=== PATIENT | female | born 1985 | race Caucasian/White ===

== ENCOUNTER 2020-05-10 07:04 | Inpatient (IN) | payer SELFPAY ==
[~2020-05-10] VITALS: Ht 154.9 cm; Wt 73.5 kg
[2020-05-10] VITALS (45 sets, daily range): BP systolic 87–168; BP diastolic 51–84
[~2020-05-10 07:04] MED LIST: ACDPT; IBP800T PO; LORA0.5T PO; NAPR-1070 PO; NF-SKEL800 PO; PARO30TA74 PO; PROM12.59 PO; SULF1TAB35 PO
--- NOTE | 2020-05-10 07:15 | NUR ---
GOPI SUMMERS presented to unit via AMBULATORY from ED, accompanied by S/O, with c/o WATER BROKE,CONTRACTIONS. GOPI SUMMERS weighed, gowned, voided, and to bed. EFHM and TOCO applied, VS taken. GOPI SUMMERS oriented to bed controls, call light, TV, heat, and A/C controls.
[2020-05-10] MEDS ORDERED: D5 LR IV SOLUTION 1,000 ML IV ONE (07:33)
--- NOTE | 2020-05-10 07:38 | NUR ---
DR. SOLIS NOTIFIED OF PT'S ARRIVAL, @ 36.1, SROM, DREWE. THIS RN TO SEE IF DR. GUILLERMO IS AVAILABLE FOR HER OWN LABOR.
--- NOTE | 2020-05-10 07:44 | NUR ---
DR. GUILLERMO NOTIFIED OF PT'S ARRIVAL, @ 36.1, SROM SINCE 0500, SVE, CURRENTLY UNKNOWN GBS, CLINIC IS SENDING OVER UPDATED RECORDS. DR. GUILLERMO TO TAKE OVER, NEW ORDERS RECEIVED.
[2020-05-10] MEDS ORDERED: OXYTOCIN PRE-MIX DRIP 500 ML IV SCH ×2 (07:56→17:56)
[2020-05-10] MEDS ORDERED: MINERAL OIL CONCENTRATE 99.9% 15 ML UDC TOP PRN (08:00)
--- NOTE | 2020-05-10 08:00 | NUR ---
this rn receives report from doug guzman rn and shiraz serna rn at this time. this rn assumes care for pt at this time.
[2020-05-10 08:02] LABS: BASOPHILS % (AUTO) 0 % (0-10); EOSINOPHILS # (AUTO) 0.1 10^3/uL (0.0-0.3); EOSINOPHILS % (AUTO) 1 % (0-10); HEMATOCRIT 36 % (35-52); HEMOGLOBIN 12.4 G/DL (11.5-16.0); LYMPHOCYTES # (AUTO) 1.8 X 10^3 (1.0-4.0); LYMPHOCYTES % (AUTO) 19 % (12-44); MEAN CORPUSCULAR HEMOGLOBIN 31 PG (25-34); MEAN CORPUSCULAR HGB CONC 35 G/DL (32-36); MEAN CORPUSCULAR VOLUME 91 FL (80-99); MEAN PLATELET VOLUME 10.2 FL (7.4-10.4); MONOCYTES # (AUTO) 0.8 X 10^3 (0.0-1.0); MONOCYTES % (AUTO) 9 % (0-12); NEUTROPHILS # (AUTO) 6.5 X 10^3 (1.8-7.8); NEUTROPHILS % (AUTO) 71 % (42-75); PLATELET COUNT 245 10^3/uL (130-400); RED CELL DISTRIBUTION WIDTH 14.1 % (10.0-14.5); WHITE BLOOD COUNT 9.2 10^3/uL (4.3-11.0)
[2020-05-10] MEDS ORDERED: OXYTOCIN PRE-MIX DRIP 500 ML IV ONE (08:05)
[2020-05-10] MEDS: D5 LR IV SOLUTION 1,000 ML IV SCH ×2 (08:26→15:47)
--- NOTE | 2020-05-10 09:00 | NUR ---
This RN contacts Dr Cat. GBS status unknown. Lab was sent on and office does not have results back yet. would like to start AMP abx for unknown gbs status during labor. start gbs protocol.
[2020-05-10] MEDS ORDERED: AMPICILLIN FOR IV USE 2,000 MG in WATER (STERILE) FOR INJECTION 14.8 ML IV SCH (09:07)
--- OUTSIDE RECORDS SUMMARY | 2020-05-10 09:52 | XMS REPORT ---
Author Author [employer] [facility] [employer] [facility] Address [address] [place] [address] Care Team Providers Care Boring Inspector Name Role Phone GEORGE MCCLAIN Unavailable [facility] Unavailable WILL HICKMAN, EDITH Adan Unavailable Unavailable ZAMZAM LOPEZ APRN Unavailable Unavailable Unavailable Unavailable Unavailable Unavailable Unavailable Unavailable Allergies The data below is from unstructured sources Allergen Type Severity Reaction Status Last Updated NKANo Known Allergies Allergy Unknown Active 03/26/07 Allergen Type Severity Reaction Last Updated No Known Allergies Allergy Unknown 03/26/07 Allergen Type Severity Reaction Last Updated No Known Allergies Allergy Unknown 03/26/07 Encounters Encounter Date Encounter Type Encounter Diagnosis Care Provider Facility Start: Patient encounter EDITH SOLIS MD [facility] 05-10-2020 [facility] Start: Patient encounter 04-19-2015 procedure Start: Patient encounter ZAMZAM LOPEZ APRN [facility] 04-19-2015 [facility] Start: Patient encounter 04-18-2013 procedure Start: Patient encounter JANETTE BAKER MD Not A vailable ([id number]) 04-14-2013 procedure Medical Equipment No Information Goals No Information Immunizations Immunizatio Immunization Notes Care Provider Facility n Date 02-17-2018 [facility] ([facility] ([id number]) Interventions No Information Medications No Information Payers The data below is from unstructured sources Payer Name Policy Number Subscriber Name Relationship Self Pay RobbiDior Ventura 01 Self / Same As Patient Plan of Treatment The data below is from unstructured sources Discharge Date 07/06/16 8:25pm Disposition 01 HOME, SELF-CARE Condition at Discharge Stable Instructions/Education Provided [id number] Concussion (ED) Cervical Sprain (ED) Prescriptions See Medication Section Referrals GEOREG MCCLAIN DO - Primary Care Physician [facility] - Primary Care Physician Problems Problem Problem Date Last Documented Episodic/Chr Provider Classificati Recorded Date onic on Malaise and Other malaise and fatigue Episodic KR ISTINA fatigue OLIVIA HICKMAN (2 sources) Nonmalignant Lump or mass in breast 05-10-2020 Episodic HE IDI JESSICA breast BRICK YARD HAND conditions (3 sources) Other Vega's palsy Episodic nervous system disorders (4 sources) Other Disturbance of skin sensation Episod ic nervous system disorders (2 sources) Paralysis Paralysis, unspecified Chronic KRIST BANDAR (2 sources) OLIVIA HICKMAN Procedures The data below is from unstructured sourcesNo known history of procedures. Results Test Name Value Interpreta Reference Facilit Date tion Range y Time laboratory on 2020-05-10 Basophils (Bld) 0.0 10*3/uL Negative 0.0-0.1 PENDING 05-10 [#/Vol] 10*3/uL [facility] 04:00-0 ([id number]) 400 Basophils/100 WBC 0 % Negative 0-10 % PENDING 05-10 (Bld) [facility] 04:00-0 (48754) 400 Eosinophils (Bld) 0.1 10*3/uL Negative 0.0-0.3 PENDING [#/Vol] 10*3/uL [facility] 04:00-0 (00050) 400 Eosinophils/100 WBC 1 % Negative 0-10 % PENDING (Bld) [facility] 04:00-0 ([id number]) 400 Erythrocyte 14.1 % Negative 10.0-14.5 PENDING distribution width % [facility] 0[facility] (RBC) [Ratio] [facility] 04:00-0 (47310) 400 Hematocrit (Bld) 36 % Negative 35-52 % PENDING [Volume fraction] [facility] 04:00-0 (83357) 400 Hemoglobin (Bld) 12.4 g/dL Negative 11.5-16.0 PENDING [Mass/Vol] g/dL [facility] 04:00-0 ([id number]) 400 Lymphocytes (Bld) 1.8 10*3/uL Negative 1.0-4.0 PENDING [#/Vol] 10*3 [facility] 020 [facility] 04:00-0 ([id number]) 400 Lymphocytes/100 WBC 19 % Negative 12-44 % PENDING (Bld) [facility] 020 [facility] 04:00-0 ([id number]) 400 MCH (RBC) [Entitic 31 pg Negative 25-34 pg PENDING 04-24 mass] [facility] 020 [facility] 04:00-0 ([id number]) 400 MCHC (RBC) 35 g/dL Negative 32-36 g/dL PENDING [Mass/Vol] [address] 04:00-0 (19009) 400 MCV (RBC) [Entitic 91 Negative 80-99 PENDING 04-24 vol] [foz_us] [facility] 020 [facility] 04:00-0 ([id number]) 400 Monocytes (Bld) 0.8 10*3/uL Negative 0.0-1.0 PENDING 05-10 [#/Vol] 10*3 [facility] [address] [place] [address] 04:00-0 (95524) 400 Monocytes/100 WBC 9 % Negative 0-12 % PENDING 05-10 (Bld) [address] 04:00-0 ([id number]) 400 Neutrophils (Bld) 6.5 10*3/uL Negative 1.8-7.8 PENDING [#/Vol] 10*[address] 04:00-0 (47687) 400 Neutrophils/100 WBC 71 % Negative 42-75 % PENDING (Bld) [address] 04:00-0 (49089) 400 Platelet mean volume 10.2 Negative 7.4-10.4 PENDING (Bld) [Entitic vol] [foz_us] [facility] 04:00-0 (51516) 400 Platelets (Bld) 245 10*3/uL Negative 130-400 PENDING 05-10 [#/Vol] 10*3/uL [facility] 04:00-0 (28303) 400 RBC (Bld) [#/Vol] 3.95 10*6/uL Low 4.35-5.85 PENDING 10*6/uL [facility] 04:00-0 (44193) 400 WBC (Bld) [#/Vol] 9.2 10*3/uL Negative 4.3-11.0 PENDING 10*3/uL [facility] 04:00-0 (62576) 400 Social History The data below is from unstructured sources History Response Recorde d Date/Time Hx Family Cancer N 01/11 10:03am History Response Recorde d Date/Time Alcohol Use Denies Use 0 04/03/13 9:08pm Recreational Drug Use N 04/03/13 9:08pm Recent Infectious Disease Exposure N 04/03/13 9:08pm Hospitalization with Isolation Denies 04/03/13 9:08pm History Response Recorde d Date/Time Alcohol Use Denies Use 0 04/03/13 9:08pm Recreational Drug Use N 04/03/13 9:08pm Recent Infectious Disease Exposure N 04/03/13 9:08pm Hospitalization with Isolation Denies 04/03/13 9:08pm Vital Signs The data below is from unstructured sources Vital Response Date/Time Temperature (Fahrenheit) 98.1 degree s F (97.6 - 99.5) 07/06/2016 6:10pm Temperature (Calculated Celsius) 36. 61915 degrees C (36.4 - 37.5) 07/06/2016 6:10pm Temperature Source Temporal 07/06/2016 6:10pm Pulse Rate (adult) 68 bpm (60 - 90) 07/06/2016 6:10pm Respiratory Rate 16 bpm (12 - 24) 07/06/2016 6:10pm O2 Sat by Pulse Oximetry 98 % (88 - 100) 07/06/2016 6:10pm Blood Pressure 108/75 mm Hg 07/06/2016 6:10pm Blood Pressure Mean 86 mm Hg 07/06/2016 6:10pm Pain Numeric Pain Scale 9 6:42pm Height (Feet) 5 feet 09/2016 6:10pm Height (Inches) 5 inches 07/06/2016 6:10pm Height (Calculated Centimeters) 165. 000319 cm 07/06/2016 6:10pm Weight (Pounds) 130 pounds 07/06/2016 6:10pm Weight (Calculated Grams) 62857.454 gm 07/06/2016 6:10pm Weight (Calculated Kilograms) 58.967 009 kilograms 07/06/2016 6:10pm Calculated BMI 22.68 09/2016 6:10pm Capillary Refill Capillary Refill Less Than 3 Seconds 07/06/2016 6:10pm Functional Status The data below is from unstructured sourcesNo functional status results. Mental Status No Information Advance Directives Directive Response Recor ded Date/Time Advance Directives No 6:10pm Health Care Power of Pulmonary Function Technologist No 07/06/16 6:10pm Organ Donor Yes 07/06/16 6:10pm Resuscitation Status Full Code 07/06/16 6:10pm Directive Response Recor ded Date Advance Directives N 08/06 9:08pm Health Care Power of Pulmonary Function Technologist N 04/03/13 9:08pm Organ Donor Y 04/03/13 9 :08pm Discharge Instructions No hospital discharge instructions. Additional Source Comments This clinical document has been generated using [employer] software that has been certified by the Office of the National Coordinator for Health Information Technology (ONC 15.99.04.3023.Diam.31.00.0.877546) and the National Committee for Cement Mixer Driver (NCQA, as an eMeasure certified technology). FOR RECORDS PERTAINING TO PATIENTS WHO ARE OR HAVE BEEN ENROLLED IN A CHEMICAL D EPENDENCY/SUBSTANCE ABUSE PROGRAM, SOME INFORMATION MAY BE OMITTED. This clinica l summary was aggregated from multiple sources. Caution should be exercised in using it in the provision of clinical care. This summary normalizes information from multiple sources, and as a consequence, information in this document may ma terially change the coding, format and clinical context of patient data. In daniel tion, data may be omitted in some cases. CLINICAL DECISIONS SHOULD BE BASED ON T HE PRIMARY CLINICAL RECORDS. [employer] provides no warranty or guara ntee of the accuracy or completeness of information in this document.The followi ng information is based on time limited clinical information
--- OUTSIDE RECORDS SUMMARY | 2020-05-10 09:53 | XMS REPORT ---
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 Active 04308119 ALLERGIES No Information ENCOUNTERS Encounter Location Date Diagnosis [place] [address] [address] 12 Apr, 2018 Encounter for Depo-Provera c ontraception Z30.42 [place] [address] [address] 12 Apr, 2018 Dysfunctional uterine bleedi ng N93.8 [place] [address] [place] [id number] [address] [place] [address] February, Dysfunctional uterine bleedi ng N93.8 [place] [address] [address] February, [facility] [address] [address] Jan, General counseling and advic e for contraceptive management Z30.09 and Encounter for Depo-Provera contraception Z30.42 [place] [address] [address] [place] [id number] [place] [address] Jan, Anxiety F41.9 [place] [address] [place] [id number] [address] [place] [address] Dec, 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 [place] [address] [address] [place] [id number] [address] [place] [address] Jun, Anxiety F41.9 [place] [address] [address] May, Anxiety F41.9 [facility] [address] [id number] [address] [place] [address] Apr, Anxiety F41.9 [facility] [address] [id number] [address] [place] [address] 17 Mar, 2015 Routine gynecological examin ation V72.31 ; Pap test, as part of routine gynecological examination V76.2 ; Breast cancer screening V76.10 ; Dysmenorrhea 625.3 ; Lump of right breast 611.72 and Family history of ovarian cancer V16.41 [facility] [address] [id number] [address] [place] [address] 14 Jan, 2015 [facility] [address] [id number] [address] [place] [phone] Jan, [facility] [address] [id number] [address] [place] [address] Sep, [facility] [address] [id number] [address] [place] [address] Sep, [facility] [address] [id number] [address] [place] [address] Dec, [facility] [address] [id number] [address] [place] [address] Dec, [facility] [address] [id number] [address] [place] [address] Apr, [facility] [address] [id number] [address] [place] [phone] Mar, [facility] [address] [id number] [address] [place] [address] Mar, [facility] [address] [id number] [address] [place] [address] Mar, [facility] [address] [id number] [address] [place] [phone] Mar, [facility] [address] [id number] [address] [place] [address], [place] [address] 08 Jan, 2013 [facility] [address] [id number] [address] [place] [address], [place] [address] Jan, [facility] [address] [id number] [address] [place] [address], [place] [address] 31 Dec, 2012 [facility] [address] [id number] [address] [place] [address], [place] [address] 29 Dec, 2012 [facility] [address] [id number] [address] [place] [address], [place] [address] 28 Dec, 2012 [facility] [address] [id number] [address] [place] [address], [place] [address] 22 Dec, 2012 [facility] [address] [id number] [address] [place] [address], [place] [address] 20 Dec, 2012 [facility] [address] [id number] [address] [place] [address], [place] [address] 20 Dec, 2012 [facility] [address] [id number] [address] [place] [address], [place] [address] 13 Oct, 2009 [facility] [address] [id number] [address] [place] [address], [place] [address] 31 Sep, 2009 [facility] [address] [id number] [address] [place] [address], [place] [address] 23 Sep, 2009 [facility] [address] [id number] [address] [place] [address], [place] [address] 07 Sep, 2009 [facility] [address] [id number] [address] [place] [address], [place] [address] 23 Aug, 2009 [facility] [address] [id number] [address] [place] [address], [place] [address] Aug, [facility] [address] [id number] [address] [place] [address], [place] [address] 11 Aug, 2009 [facility] [address] [id number] [address] [place] [address], [place] [address] Jul, [facility] [address] [facility] [id number] [address] [place] [phone] Jul, [facility] [address] [facility] [id number] [address] [place] [phone] Jul, [facility] [address] [facility] [id number] [address] [place] [address] Jun, [facility] [address] [facility] [id number] [address] [place] [address] May, [facility] [address] [facility] [id number] [address] [place] [address] Mar, IMMUNIZATIONS No Known Immunizations SOCIAL HISTORY Never Assessed REASON FOR VISIT EMR-[facility] PLAN OF CARE VITAL SIGNS MEDICATIONS Unknown Medications RESULTS No Results PROCEDURES No Known procedures INSTRUCTIONS MEDICATIONS ADMINISTERED No Known Medications MEDICAL (GENERAL) HISTORY Type Description Date Medical History low blood pressure Medical History hx of vega's palsy Medical History depression Surgical History breast implant Hospitalization History UTI. Then got Hypotension. 2013
--- OUTSIDE RECORDS SUMMARY | 2020-05-10 09:53 | XMS REPORT ---
Author Author Joanna Shaw Doctor Organization [facility] Address Unknown Phone Unavailable Care Team Providers Care Die Tester Name Role Phone Migration, Doctor Unavailable Unavailable PROBLEMS Type Condition ICD9-CM Code [id number] Code Onset Dates Condition S tatus SNOMED Code Problem Dysfunctional uterine bleeding N93.8 Active [id number] ALLERGIES No Information ENCOUNTERS Encounter Location Date Diagnosis [place] [address] [address] 12 Apr, 2018 Encounter for Depo-Provera c ontraception Z30.42 [place] [address] [address] 12 Apr, 2018 Dysfunctional uterine bleedi ng N93.8 [place] [id number] [address] [place] [address] February, Dysfunctional uterine bleedi ng N93.8 [place] [address] [address] February, [facility] [address] [address] Jan, General counseling and advic e for contraceptive management Z30.09 and Encounter for Depo-Provera contraception Z30.42 [place] [address] [place] [id number] [address] [place] [address] Jan, Anxiety F41.9 [place] [address] [place] [id number] [address] [place] [address] Dec, 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 [place] [address] [place] [id number] [address] [place] [address] Jun, Anxiety F41.9 [place] [address] [address] May, Anxiety F41.9 [facility] [address] [id number] [address] [place] [address] Apr, Anxiety F41.9 [facility] [address] [id number] [address] [place] [address] 17 Mar, 2015 Routine gynecological examin ation V72.31 ; Pap test, as part of routine gynecological examination V76.2 ; Breast cancer screening V76.10 ; Dysmenorrhea 625.3 ; Lump of right breast 611.72 and Family history of ovarian cancer V16.41 [facility] [address] [id number] [address] [place] [address] 14 Jan, 2015 [facility] [address] [id number] [address] [place] [phone] Jan, [facility] [address] [id number] [address] [place] [address] Sep, [facility] [address] [id number] [address] [place] [phone] Sep, [facility] [address] [id number] [address] [place] [phone] Dec, [facility] [address] [id number] [address] [place] [phone] Dec, [facility] [address] [id number] [address] [place] [phone] Apr, [facility] [address] [id number] [address] [place] [phone] Mar, [facility] [address] [id number] [address] [place] [phone] Mar, [facility] [address] [id number] [address] [place] [phone] Mar, [facility] [address] [id number] [address] [place] [address] Mar, [facility] [address] [id number] [address] [place] [address], [place] [address] 08 Jan, 2013 [facility] [address] [id number] [address] [place] [address], [place] [address] Jan, [facility] [address] [id number] [address] [place] [address], [place] [address] 31 Dec, 2012 [facility] [address] [id number] [address] [place] [address], [place] [address] 29 Dec, 2012 [facility] [address] [id number] [address] [place] [address], [place] [address] 28 Dec, 2012 [facility] [address] [id number] [address] [place] [address], [place] [address] 22 Dec, 2012 [facility] [address] [id number] [address] [place] [address], [place] [address] 20 Dec, 2012 [facility] [address] [id number] [address] [place] [address], [place] [address] 20 Dec, 2012 [facility] [address] [id number] [address] [place] [address], [place] [address] 13 Oct, 2009 [facility] [address] [id number] [address] [place] [address], [place] [address] 31 Sep, 2009 [facility] [address] [id number] [address] [place] [address], [place] [address] 23 Sep, 2009 [facility] [address] [id number] [address] [place] [address], [place] [address] 07 Sep, 2009 [facility] [address] [id number] [address] [place] [address], [place] [address] 23 Aug, 2009 [facility] [address] [id number] [address] [place] [address], [place] [address] Aug, [facility] [address] [id number] [address] [place] [address], [place] [address] 11 Aug, 2009 [facility] [address] [id number] [address] [place] [address], [place] [address] Jul, [facility] [address] [facility] [id number] [address] [place] [phone] Jul, [facility] [address] [facility] [id number] [address] [place] [phone] Jul, [facility] [address] [facility] [id number] [address] [place] [phone] Jun, [facility] [address] [facility] [id number] [address] [place] [phone] May, [facility] [address] [facility] [id number] [address] [place] [phone] Mar, IMMUNIZATIONS No Known Immunizations SOCIAL HISTORY Never Assessed REASON FOR VISIT [place] [place]ARE VITAL SIGNS MEDICATIONS Unknown Medications RESULTS No Results PROCEDURES No Known procedures INSTRUCTIONS MEDICATIONS ADMINISTERED No Known Medications MEDICAL (GENERAL) HISTORY Type Description Date Medical History low blood pressure Medical History hx of vega's palsy Medical History depression Surgical History breast implant Hospitalization History UTI. Then got Hypotension. 2013
--- OUTSIDE RECORDS SUMMARY | 2020-05-10 09:53 | XMS REPORT ---
Author Author Joanna Shaw Doctor Organization [facility] Address Unknown Phone Unavailable Care Team Providers Care Production Scheduler Name Role Phone Migration, Doctor Unavailable Unavailable PROBLEMS Type Condition ICD9-CM Code FLV72-QT Code Onset Dates Condition S tatus SNOMED Code Problem Dysfunctional uterine bleeding N93.8 Active [id number] ALLERGIES No Information ENCOUNTERS Encounter Location Date Diagnosis [place] [address] [address] 12 Apr, 2018 Encounter for Depo-Provera c ontraception Z30.42 [place] [address] [address] 12 Apr, 2018 Dysfunctional uterine bleedi ng N93.8 [place] [id number] [address] [place] [address] February, Dysfunctional uterine bleedi ng N93.8 [place] [address] [address] February, [facility] [place] [address] [address] 26 Jan, 2018 General counseling and advic e for contraceptive management Z30.09 and Encounter for Depo-Provera contraception Z30.42 [place] [address] [place] [id number] [address] [place] [address] Jan, Anxiety F41.9 [place] [address] [place] [id number] [address] [place] [address] Dec, 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 [place] [address] [place] [id number] [address] [place] [phone] Jun, Anxiety F41.9 [place] [address] [place] [id number] [address] [place] [address] May, Anxiety F41.9 [facility] [place] [address] [id number] [address] [place] [phone] Apr, Anxiety F41.9 [facility] [place] [address] [id number] [address] [place] [phone] 17 Mar, 2015 Routine gynecological examin ation V72.31 ; Pap test, as part of routine gynecological examination V76.2 ; Breast cancer screening V76.10 ; Dysmenorrhea 625.3 ; Lump of right breast 611.72 and Family history of ovarian cancer V16.41 [facility] [place] [address] [id number] [address] [place] [phone] 14 Jan, 2015 [facility] [place] [address] [id number] [address] [place] [phone] Jan, [facility] [place] [address] [id number] [address] [place] [phone] Sep, [facility] [place] [address] [id number] [address] [place] [phone] Sep, [facility] [place] [address] [id number] [address] [place] [phone] Dec, [facility] [place] [address] [id number] [address] [place] [phone] Dec, [facility] [place] [address] [id number] [address] [place] [phone] Apr, [facility] [place] [address] [id number] [address] [place] [phone] Mar, [facility] [place] [address] [id number] [address] [place] [phone] Mar, [facility] [place] [address] [id number] [address] [place] [phone] Mar, [facility] [place] [address] [id number] [address] [place] [phone] Mar, [facility] [address] [id number] [address] [place] [address], [place] [address] 08 Jan, 2013 [facility] [address] [id number] [address] [place] [address], [place] [address] Jan, [facility] [address] [id number] [address] [place] [address], [place] [address] 31 Dec, 2012 [facility] [address] [id number] [address] [place] [address], [place] [address] 29 Dec, 2012 [facility] [address] [id number] [address] [place] [address], [place] [address] 28 Dec, 2012 [facility] [address] [id number] [address] [place] [address], [place] [address] 22 Dec, 2012 [facility] [address] [id number] [address] [place] [address], [place] [address] 20 Dec, 2012 [facility] [address] [id number] [address] [place] [address], [place] [address] 20 Dec, 2012 [facility] [address] [id number] [address] [place] [address], [place] [address] 13 Oct, 2009 [facility] [address] [id number] [address] [place] [address], [place] [address] 31 Sep, 2009 [facility] [address] [id number] [address] [place] [address], [place] [address] 23 Sep, 2009 [facility] [address] [id number] [address] [place] [address], [place] [address] 07 Sep, 2009 [facility] [address] [id number] [address] [place] [address], [place] [address] 23 Aug, 2009 [facility] [address] [id number] [address] [place] [address], [place] [address] Aug, [facility] [address] [id number] [address] [place] [address], [place] [address] 11 Aug, 2009 [facility] [address] [id number] [address] [place] [address], [place] [address] Jul, [facility] [place] [address] [facility] [id number] [address] [place] [phone] Jul, [facility] [place] [address] [facility] [id number] [address] [place] [phone] Jul, [facility] [place] [address] [facility] [id number] [address] [place] [phone] Jun, [facility] [place] [address] [facility] [id number] [address] [place] [phone] May, [facility] [place] [address] [facility] [id number] [address] [place] [phone] Mar, IMMUNIZATIONS No Known Immunizations SOCIAL HISTORY Never Assessed REASON FOR VISIT EMR-[facility] PLAN OF CARE VITAL SIGNS MEDICATIONS Unknown Medications RESULTS No Results PROCEDURES No Known procedures INSTRUCTIONS MEDICATIONS ADMINISTERED No Known Medications MEDICAL (GENERAL) HISTORY Type Description Date Medical History low blood pressure Medical History hx of vega's palsy Medical History depression Surgical History breast implant Hospitalization History UTI. Then got Hypotension. 2013
--- OUTSIDE RECORDS SUMMARY | 2020-05-10 09:53 | XMS REPORT ---
Author Author Joanna Shaw Doctor Organization [facility] Address Unknown Phone Unavailable Care Team Providers Care Master [employer] Name Role Phone Migration, Doctor Unavailable Unavailable PROBLEMS Unknown Problems ALLERGIES No Information ENCOUNTERS Encounter Location Date Diagnosis [facility] [address] [facility] [id number] [address] [place] [phone] Apr, [facility] [address] [facility] [id number] [address] [place] [phone] Apr, [facility] [address] [place] [id number] [address] [place] [phone] Apr, [place] [address] [place] [id number] [address] [place] [phone] Apr, [facility] [address] [facility] [id number] [address] [place] [phone] Mar, care in second trim fernando Z34.92 and 25 weeks gestation of Z3A.25 [place] [address] [address] [facility] [id number] [address] [place] [phone] Mar, care in third trime ster Z34.93 and 32 weeks gestation of Z3A.32 [place] [address] [place] [id number] [address] [place] [address] February, care in third trime ster Z34.93 and 29 weeks gestation of Z3A.29 [place] [address] [address] [facility] [id number] [address] [place] [phone] February, [place] [address] [place] [id number] [address] [place] [phone] Jan, care in second trim fernando Z34.92 ; 25 weeks gestation of Z3A.25 ; Multigravida of advanced maternal age in second trimester O09.522 and Low lying placenta NOS or without hemorrhage, second trimester O44.42 [facility] [address] [facility] [id number] [address] [place] [phone] 02 Jan, 2020 care in second trim fernando Z34.92 ; 21 weeks gestation of Z3A.21 and Low lying placenta NOS or without hemorrhage, second trimester O44.42 [facility] [address] [facility] [id number] [address] [place] [phone] 27 Dec, 2019 care in second trim fernando Z34.92 and 17 weeks gestation of Z3A.17 [facility] [address] [facility] [id number] [address] [place] [phone] 05 Dec, 2019 care in second trim fernando Z34.92 ; 17 weeks gestation of Z3A.17 and Multigravida of advanced maternal age in second trimester O09.522 [place] [address] [facility] [id number] [address] [place] [phone] 06 Nov, 2019 care in second trim fernando Z34.92 ; 13 weeks gestation of Z3A.13 and Influenza B J10.1 [facility] [address] [facility] [id number] [address] [place] [phone] Nov, [facility] [address] [facility] [id number] [address] [place] [phone] 03 Nov, 2019 Influenza B J10.1 [facility] [address] [facility] [id number] [address] [place] [phone] Oct, care in first trime ster Z34.91 ; 9 weeks gestation of Z3A.09 and BMI 24.0-24.9, adult Z68.24 [facility] [address] [facility] [id number] [address] [place] [address] Sep, care in first trime ster Z34.91 [place] [address] [facility] [id number] [address] [place] [address] Sep, care in first trime ster Z34.91 [place] [address] [place] [id number] [address] [place] [address] Sep, care in first trime ster Z34.91 [place] [address] [address] Sep, Normal in multigra renard Z34.80 [place] [address] [place] [id number] [address] [place] [address] Sep, care in first trime ster Z34.91 [place] [address] [place] [id number] [address] [place] [address] Sep, Dental examination Z01.20 [place] [address] [address] Sep, care in first trime ster Z34.91 ; Normal in multigravida Z34.80 ; Pap smear for cervical cancer screening Z12.4 ; Screen for STD (sexually transmitted disease) Z11.3 ; 8 weeks gestation of Z3A.08 and BMI 24.0-24.9, adult Z68.24 [place] [address] [address] Sep, Encounter for test , result unknown Z32.00 [place] [address] [address] Sep, Encounter for test , result unknown Z32.00 [place] [address] [place] [id number] [address] [place] [phone] May, Female fertility problem N97 .9 [place] [address] [place] [id number] [address] [place] [address] Apr, Encounter for Depo-Provera c ontraception Z30.42 [place] [address] [place] [id number] [address] [place] [address] Apr, Dysfunctional uterine bleedi ng N93.8 [place] [address] [place] [id number] [address] [place] [phone] February, Dysfunctional uterine bleedi ng N93.8 [facility] [address] [facility] [id number] [address] [place] [address] February, [place] [address] [facility] [id number] [address] [place] [address] Jan, General counseling and advic e for contraceptive management Z30.09 and Encounter for Depo-Provera contraception Z30.42 [place] [address] [facility] [id number] [address] [place] [phone] 27 Jan, 2017 Anxiety F41.9 [place] [address] [facility] [id number] [address] [place] [phone] 13 Dec, 2016 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 [place] [address] [facility] [id number] [address] [place] [id number] Jun, Anxiety F41.9 [place] [address] [address] [place] [id number] [address] [place] [phone] May, Anxiety F41.9 [place] [address] [place] [id number] [address] [place] [address] Apr, Anxiety F41.9 [place] [address] [address] [place] [id number] [address] [place] [phone] 17 Mar, 2015 Routine gynecological examin ation V72.31 ; Pap test, as part of routine gynecological examination V76.2 ; Breast cancer screening V76.10 ; Dysmenorrhea 625.3 ; Lump of right breast 611.72 and Family history of ovarian cancer V16.41 [place] [address] [address] [facility] [id number] [address] [place] [address] Jan, [place] [address] [facility] [id number] [address] [place] [phone] 13 Jan, 2015 [place] [address] [address] [place] [id number] [address] [place] [phone] Sep, [place] [address] [address] [place] [id number] [address] [place] [phone] Sep, [facility] [address] [id number] [address] [place] [address], [place] [phone] Dec, [facility] [address] [id number] [address] [place] [address], [place] [phone] Dec, [facility] [address] [id number] [address] [place] [address], [place] [phone] Apr, [facility] [address] [id number] [address] [place] [address], [place] [phone] Mar, [facility] [address] [id number] [address] [place] [address], [place] [id number] Mar, [facility] [address] [id number] [address] [place] [address], [place] [phone] Mar, [facility] [address] [id number] [address] [place] [address], [place] [phone] Mar, [facility] [address] [id number] [address] [place] [address], [place] [phone] Jan, [facility] [address] [id number] [address] [place] [address], [place] [phone] Jan, [facility] [address] [id number] [address] [place] [address], [place] [phone] 31 Dec, 2012 [facility] [address] [id number] [address] [place] [address], [place] [phone] 29 Dec, 2012 [facility] [address] [id number] [address] [place] [address], [place] [phone] 28 Dec, 2012 [facility] [address] [id number] [address] [place] [address], [place] [phone] 22 Dec, 2012 [facility] [address] [id number] [address] [place] [address], [place] [phone] 20 Dec, 2012 [facility] [address] [id number] [address] [place] [address], [place] [phone] 20 Dec, 2012 [facility] [address] [id number] [address] [place] [phone] Oct, [facility] [address] [id number] [address] [place] [phone] Sep, [facility] [address] [id number] [address] [place] [phone] Sep, [facility] [address] [id number] [address] [place] [phone] Sep, [facility] [address] [id number] [address] [place] [phone] Aug, [facility] [address] [id number] [address] [place] [phone] Aug, [facility] [address] [id number] [address] [place] [phone] Aug, [facility] [address] [id number] [address] [place] [phone] Jul, [facility] [address] [id number] [address] [place] [phone] Jul, [facility] [address] [id number] [address] [place] [phone] Jul, [facility] [address] [id number] [address] [place] [phone] Jun, [facility] [address] [id number] [address] [place] [phone] May, [facility] [address] [id number] [address] [place] [phone] Mar, IMMUNIZATIONS No Known Immunizations SOCIAL HISTORY Never Assessed REASON FOR VISIT PLAN OF CARE VITAL SIGNS MEDICATIONS Unknown Medications RESULTS No Results PROCEDURES No Known procedures INSTRUCTIONS MEDICATIONS ADMINISTERED No Known Medications MEDICAL (GENERAL) HISTORY Type Description Date Medical History low blood pressure Medical History hx of vega's palsy Medical History depression Surgical History breast implant 2017 Hospitalization History UTI. Then got Hypotension. 2013 Hospitalization History child
--- OUTSIDE RECORDS SUMMARY | 2020-05-10 09:53 | XMS REPORT ---
Author Author Joanna ADAMSON [facility] Address [address] [place] [address] Care Team Providers Care Technology Professional Name Role Phone TIKA ADAMSON Unavailable PROBLEMS Unknown Problems ALLERGIES No Known Allergies SOCIAL HISTORY Never Assessed PLAN OF CARE Activity Details Follow Up prn Reason: VITAL SIGNS Height 62 in 2017-01-04 Weight 132.6 lbs 2017-01-04 Temperature 98.3 degrees Fahrenheit 2017-01-04 Heart Rate 78 bpm 2017-01-04 Respiratory Rate 18 2017-01-04 BMI 24.25 kg/m2 2017-01-04 Blood pressure systolic 102 mmHg 2017-01-04 Blood pressure diastolic 64 mmHg 2017-01-04 MEDICATIONS Medication Instructions Dosage Frequency Start Date End Date Duration S tatus Paroxetine HCl 30 MG Orally Once a day 1 tablet in the morning 24h Apr, 30 day(s) Active Acyclovir 800 MG Orally 3 times a day 1 tablet 8h Dec, 07 days Active PredniSONE 50 mg Orally Once a day 1 tablet 24h Dec, Dec, 07 days Active RESULTS No Results PROCEDURES No Known procedures IMMUNIZATIONS No Known Immunizations MEDICAL (GENERAL) HISTORY Type Description Date Medical History low blood pressure Medical History hx of alanis's palsy Medical History depression Hospitalization History UTI. Then got Hypotension. 2013
--- OUTSIDE RECORDS SUMMARY | 2020-05-10 09:53 | XMS REPORT ---
Author Author Joanna Shaw Doctor Organization [facility] Address Unknown Phone Unavailable Care Team Providers Care Take Down Sorter Name Role Phone Migration, Doctor Unavailable Unavailable PROBLEMS Unknown Problems ALLERGIES No Information ENCOUNTERS Encounter Location Date Diagnosis [facility] [address] [id number] [address] [place] [phone] Apr, [facility] [address] [id number] [address] [place] [phone] Apr, [facility] [address] [facility] [id number] [address] [place] [phone] Apr, [facility] [address] [facility] [id number] [address] [place] [phone] Apr, [facility] [address] [facility] [id number] [address] [place] [address] Apr, [facility] [address] [facility] [id number] [address] [place] [address] Mar, [facility] [address] [facility] [id number] [address] [place] [address] Mar, [facility] [address] [facility] [id number] [address] [place] [address] February, care in third trime ster Z34.93 and 29 weeks gestation of Z3A.29 [facility] [address] [facility] [id number] [address] [place] [address] February, [facility] [address] [facility] [id number] [address] [place] [address] Jan, care in second trim fernando Z34.92 ; 25 weeks gestation of Z3A.25 ; Multigravida of advanced maternal age in second trimester O09.522 and Low lying placenta NOS or without hemorrhage, second trimester O44.42 [facility] [address] [facility] [id number] [address] [place] [phone] 02 Jan, 2020 care in second trim fernando Z34.92 ; 21 weeks gestation of Z3A.21 and Low lying placenta NOS or without hemorrhage, second trimester O44.42 [facility] [address] [facility] [id number] [address] [place] [address] 27 Dec, 2019 care in second trim fernando Z34.92 and 17 weeks gestation of Z3A.17 [facility] [address] [facility] [id number] [address] [place] [phone] 05 Dec, 2019 care in second trim fernando Z34.92 ; 17 weeks gestation of Z3A.17 and Multigravida of advanced maternal age in second trimester O09.522 [place] [address] [facility] [id number] [address] [place] [phone] 06 Nov, 2019 care in second trim fernando Z34.92 ; 13 weeks gestation of Z3A.13 and Influenza B J10.1 [facility] [address] [facility] [id number] [address] [place] [phone] Nov, [facility] [address] [facility] [id number] [address] [place] [address] 03 Nov, 2019 Influenza B J10.1 [facility] [address] [facility] [id number] [address] [place] [phone] Oct, care in first trime ster Z34.91 ; 9 weeks gestation of Z3A.09 and BMI 24.0-24.9, adult Z68.24 [facility] [address] [facility] [id number] [address] [place] [phone] Sep, care in first trime ster Z34.91 [facility] [address] [facility] [id number] [address] [place] [phone] Sep, care in first trime ster Z34.91 [facility] [address] [place] [id number] [address] [place] [phone] Sep, care in first trime ster Z34.91 [place] [address] [place] [address] Sep, Normal in multigra renard Z34.80 [place] [address] [place] [address] Sep, care in first trime ster Z34.91 [place] [address] [place] [id number] [address] [place] [address] Sep, Dental examination Z01.20 [place] [address] [address] Sep, care in first trime ster Z34.91 ; Normal in multigravida Z34.80 ; Pap smear for cervical cancer screening Z12.4 ; Screen for STD (sexually transmitted disease) Z11.3 ; 8 weeks gestation of Z3A.08 and BMI 24.0-24.9, adult Z68.24 [place] [address] [place] [id number] [address] [place] [phone] Sep, Encounter for test , result unknown Z32.00 [place] [address] [place] [id number] [address] [place] [address] Sep, Encounter for test , result unknown Z32.00 [place] [address] [place] [id number] [address] [place] [phone] May, Female fertility problem N97 .9 [place] [address] [place] [id number] [address] [place] [address] Apr, Encounter for Depo-Provera c ontraception Z30.42 [place] [address] [place] [id number] [address] [place] [address] Apr, Dysfunctional uterine bleedi ng N93.8 [place] [address] [place] [id number] [address] [place] [phone] 31 May, 2018 Dysfunctional uterine bleedi ng N93.8 [facility] [address] [facility] [id number] [address] [place] [address] February, [facility] [address] [facility] [id number] [address] [place] [phone] 26 Jan, 2018 General counseling and advic e for contraceptive management Z30.09 and Encounter for Depo-Provera contraception Z30.42 [place] [address] [facility] [id number] [address] [place] [phone] 27 Jan, 2017 Anxiety F41.9 [place] [address] [facility] [id number] [address] [place] [address] 13 Dec, 2016 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 [place] [address] [facility] [id number] [address] [place] [phone] Jun, Anxiety F41.9 [place] [address] [place] [id number] [address] [place] [phone] May, Anxiety F41.9 [place] [address] [facility] [id number] [address] [place] [phone] Apr, Anxiety F41.9 [place] [address] [facility] [id number] [address] [place] [phone] 17 Mar, 2015 Routine gynecological examin ation V72.31 ; Pap test, as part of routine gynecological examination V76.2 ; Breast cancer screening V76.10 ; Dysmenorrhea 625.3 ; Lump of right breast 611.72 and Family history of ovarian cancer V16.41 [place] [address] [facility] [id number] [address] [place] [phone] 14 Jan, 2015 [place] [address] [facility] [id number] [address] [place] [phone] Jan, [place] [address] [facility] [id number] [address] [place] [phone] Sep, [place] [address] [place] [id number] [address] [place] [phone] Sep, [facility] [address] [id number] [facility] [place] [address] Dec, [facility] [address] [id number] [address] [place] [address], [place] [address] Dec, [facility] [address] [id number] [address] [place] [address], [place] [id number] Apr, [facility] [address] [id number] [address] [place] [address], [place] [id number] Mar, [facility] [address] [id number] [address] [place] [address], [place] [id number] Mar, [facility] [address] [id number] [address] [place] [address], [place] [address] Mar, [facility] [address] [id number] [address] [place] [address], [place] [id number] Mar, [facility] [address] [id number] [address] [place] [address], [place] [id number] Jan, [facility] [address] [id number] [address] [place] [address], [place] [id number] Jan, [facility] [address] [id number] [address] [place] [address], [place] [id number] 31 Dec, 2012 [facility] [address] [id number] [address] [place] [address], [place] [address] 29 Dec, 2012 [facility] [address] [id number] [address] [place] [address], [place] [id number] 28 Dec, 2012 [facility] [address] [id number] [address] [place] [address], [place] [id number] 22 Dec, 2012 [facility] [address] [id number] [address] [place] [address], [place] [id number] 20 Dec, 2012 [facility] [address] [id number] [address] [place] [address], [place] [id number] Dec, [facility] [address] [id number] [address] [place] [phone] 13 Oct, 2009 [facility] [address] [id number] [address] [place] [phone] Sep, [facility] [address] [id number] [address] [place] [phone] Sep, [facility] [address] [id number] [address] [place] [phone] Sep, [facility] [address] [id number] [address] [place] [phone] Aug, [facility] [address] [id number] [address] [place] [phone] Aug, [facility] [address] [id number] [address] [place] [phone] Aug, [facility] [address] [id number] [address] [place] [phone] Jul, [facility] [address] [id number] [address] [place] [phone] Jul, [facility] [address] [id number] [address] [place] [phone] Jul, [facility] [address] [id number] [address] [place] [phone] Jun, [facility] [address] [id number] [address] [place] [phone] May, [facility] [address] [id number] [address] [place] [id number] Mar, IMMUNIZATIONS No Known Immunizations SOCIAL HISTORY Never Assessed REASON FOR VISIT PLAN OF CARE VITAL SIGNS Height 62 in 2013-05-05 Weight 129.2 lbs 2013-05-05 Temperature 99 degrees Fahrenheit 2013-05-05 Heart Rate 88 bpm 2013-05-05 Respiratory Rate 18 2013-05-05 Blood pressure systolic 108 mmHg 2013-05-05 Blood pressure diastolic 60 mmHg 2013-05-05 MEDICATIONS Unknown Medications RESULTS No Results PROCEDURES No Known procedures INSTRUCTIONS MEDICATIONS ADMINISTERED No Known Medications MEDICAL (GENERAL) HISTORY Type Description Date Medical History low blood pressure Medical History hx of vega's palsy Medical History depression Surgical History breast implant 2017 Hospitalization History UTI. Then got Hypotension. 2013 Hospitalization History child
--- OUTSIDE RECORDS SUMMARY | 2020-05-10 09:53 | XMS REPORT ---
Author Author Joanna YOUNGER Organization [employer] Address Unknown Phone Unavailable Care Team Providers Care Hvac Project Manager Name Role Phone ALVARO YOUNGER CP Unavailable Allergies, Adverse Reactions, Alerts Substance Reaction Event Type N.K.D.A. Info Not Available Non Drug Allergy Problems Problem Type Condition Code Onset Dates Condition Statu s Assessment Anxiety F41.9 Active Problem Acute pharyngitis 462 Active Problem Vega's palsy 351.0 Active Problem Dysuria 788.1 Active Problem Unspecified anemia 285.9 Active Problem Headache 784.0 Active Problem Disturbance of skin sensation 782.0 Active Problem Acute pyelonephritis without lesion of renal med ullary necrosis 590.10 Active Medications Medication Code System Code Instructions Start Date End Date Status Dosage Ativan [facility] [address]-85 1 MG Orally every 6 hrs May 22, 2016 1 tablet as needed Paroxetine HCl [facility] [address]-85 30 MG Orally Once a day May 22 16 1 tablet in the morning Procedures Procedure Coding System Code Date Office Visit, Est Pt., Level 3 CPT-4 88846 A 2015 Vital Signs Date/Time: Jun 22, 2016 Cardiac Monitoring Heart Rate 80 bpm Weight 134.9 lbs Height 62 in BMI 24.67 Index Blood Pressure Diastolic 78 mmHg Blood Pressure Systolic 108 mmHg Results No Known Results Summary Purpose [employer] Submission
--- OUTSIDE RECORDS SUMMARY | 2020-05-10 09:53 | XMS REPORT ---
Author Author Joanna Pepper Organization [facility] Address [address] [place] [address] Care Team Providers Care Therapeutic Riding Instructor Name Role Phone ZAMZAM Pepper Unavailable PROBLEMS Type Condition ICD9-CM Code QRO00-VT Code Onset Dates Condition S tatus SNOMED Code Problem Dysfunctional uterine bleeding N93.8 Active 29674082 ALLERGIES No Information ENCOUNTERS Encounter Location Date Diagnosis [place] [address] [place] [id number] [address] [place] [phone] May, [place] [address] [phone] Apr, Encounter for Depo-Provera c ontraception Z30.42 [place] [address] [place] [address] Apr, Dysfunctional uterine bleedi ng N93.8 [place] [address] [place] [address] February, Dysfunctional uterine bleedi ng N93.8 [place] [address] [place] [address] February, [place] [address] [place] [address] Jan, General counseling and advic e for contraceptive management Z30.09 and Encounter for Depo-Provera contraception Z30.42 [place] [address] [place] [id number] [address] [place] [phone] Jan, Anxiety F41.9 [place] [address] [place] [id number] [address] [place] [address] Dec, 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 [facility] [address] [id number] [address] [place] [phone] Jun, Anxiety F41.9 [facility] [address] [id number] [address] [place] [phone] May, Anxiety F41.9 [facility] [address] [facility] [id number] [address] [place] [phone] Apr, Anxiety F41.9 [facility] [address] [id number] [address] [place] [address] Mar, Routine gynecological examin ation V72.31 ; Pap test, as part of routine gynecological examination V76.2 ; Breast cancer screening V76.10 ; Dysmenorrhea 625.3 ; Lump of right breast 611.72 and Family history of ovarian cancer V16.41 [facility] [address] [id number] [address] [place] [address] Jan, [facility] [address] [id number] [address] [place] [phone] Jan, [facility] [address] [facility] [id number] [address] [place] [phone] Sep, [facility] [address] [id number] [address] [place] [phone] Sep, [facility] [address] [facility] [id number] [address] [place] [phone] Dec, [facility] [address] [id number] [address] [place] [phone] Dec, [facility] [address] [id number] [address] [place] [phone] Apr, [facility] [address] [facility] [id number] [address] [place] [phone] Mar, [facility] [address] [facility] [id number] [address] [place] [phone] Mar, [facility] [address] [id number] [address] [place] [address], [place] [address] 18 Mar, 2013 [facility] [address] [id number] [address] [place] [address], [place] [address] Mar, [facility] [address] [id number] [address] [place] [address], [place] [phone] Jan, [facility] [address] [id number] [address] [place] [address], [place] [address] Jan, [facility] [address] [id number] [address] [place] [address], [place] [address] 31 Dec, 2012 [facility] [address] [id number] [address] [place] [address], [place] [address] 29 Dec, 2012 [facility] [address] [id number] [address] [place] [address], [place] [address] Dec, [facility] [address] [id number] [address] [place] [address], [place] [address] Dec, [facility] [address] [id number] [address] [place] [address], [place] [address] Dec, [facility] [address] [id number] [address] [place] [address], [place] [address] Dec, [facility] [address] [id number] [address] [place] [address], [place] [address] Oct, [facility] [address] [id number] [address] [place] [address], [place] [address] 31 Sep, 2009 [facility] [address] [id number] [address] [place] [address], [place] [address] Sep, [facility] [address] [id number] [address] [place] [address], [place] [address] Sep, [facility] [address] [id number] [address] [place] [address], [place] [address] Aug, [facility] [address] [id number] [address] [place] [address], [place] [address] Aug, [facility] [address] [id number] [address] [place] [phone] Aug, [facility] [address] [id number] [address] [place] [phone] Jul, [facility] [address] [id number] [address] [place] [phone] Jul, [facility] [address] [id number] [address] [place] [phone] Jul, [facility] [address] [id number] [address] [place] [phone] Jun, [facility] [address] [id number] [address] [place] [phone] May, [facility] [address] [id number] [address] [place] [phone] Mar, IMMUNIZATIONS No Known Immunizations SOCIAL HISTORY Never Assessed REASON FOR VISIT PLAN OF CARE VITAL SIGNS Height 62 in 2014-10-02 Weight 128.5 lbs 2014-10-02 Temperature 97.6 degrees Fahrenheit 2014-10-02 Heart Rate 82 bpm 2014-10-02 Respiratory Rate 20 2014-10-02 Blood pressure systolic 106 mmHg 2014-10-02 Blood pressure diastolic 68 mmHg 2014-10-02 MEDICATIONS Unknown Medications RESULTS No Results PROCEDURES Procedure Date Ordered Result Body Site URINALYSIS, AUTO, W/O SCOPE Oct 02, 2014 INSTRUCTIONS MEDICATIONS ADMINISTERED No Known Medications MEDICAL (GENERAL) HISTORY Type Description Date Medical History low blood pressure Medical History hx of vega's palsy Medical History depression Surgical History breast implant Hospitalization History UTI. Then got Hypotension. 2013
--- OUTSIDE RECORDS SUMMARY | 2020-05-10 09:53 | XMS REPORT ---
Author Author Joanna Shaw Doctor Organization [facility] Address Unknown Phone Unavailable Care Team Providers Care Concrete Mixer Name Role Phone Migration, Doctor Unavailable Unavailable PROBLEMS Type Condition ICD9-CM Code TYK46-AD Code Onset Dates Condition S tatus SNOMED Code Problem Dysfunctional uterine bleeding N93.8 Active [id number] Problem Female fertility problem N97.9 Activ e [id number] ALLERGIES No Information ENCOUNTERS Encounter Location Date Diagnosis [place] [address] [address] Jan, [place] [address] [address] Dec, [place] [address] [address] Dec, care in second trimester Z34.92 and 17 weeks gestation of Z3A.17 [place] [address] [address] 06 Nov, 2019 care in second trimester Z34.92 ; 13 weeks gestation of Z3A.13 and Influenza B J10.1 [place] [address] [place] [id number] [place] [address] Nov, [facility] [address] [facility] [id number] [place] [address] Nov, Influenza B J10.1 [place] [address] [address] Oct, care in first trimester Z34.91 ; 9 weeks gestation of Z3A.09 and BMI 24.0-24.9, adult Z68.24 [place] [address] [address] Sep, care in first trimester Z34.91 [place] [address] [address] Sep, care in first trimester Z34.91 [place] [address] [address] Sep, care in first trimester Z34.91 [place] [address] [address] Sep, Normal in multigravida Z34.80 [place] [address] [address] Sep, care in first trimester Z34.91 [place] [address] [address] Sep, Dental examination Z01.[address] [address] Sep, care in first trimester Z34.91 ; Normal in multigravida Z34.80 ; Pap smear for cervical cancer screening Z12.4 ; Screen for STD (sexually transmitted disease) Z11.3 ; 8 weeks gestation of Z3A.08 and BMI 24.0-24.9, adult Z68.[address] [address] Sep, Encounter for test, result unk nown Z32.[address] [address] Sep, Encounter for test, result unk nown Z32.[address] [address] May, Female fertility problem N97.[address] [address] Apr, Encounter for Depo-Provera contraception Z30.[address] [address] Apr, Dysfunctional uterine bleeding N93.[address] [id number] [place] [address] February, Dysfunctional uterine bleeding N93.8 [place] [address] [address] February, [place] [address] [address] 26 Jan, 2018 General counseling and advice for contra ceptive management Z30.09 and Encounter for Depo-Provera contraception Z30.42 [place] [address] [address] 27 Jan, 2017 Anxiety F41.9 [place] [address] [address] 13 Dec, 2016 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 [place] [address] [address] Jun, Anxiety F41.9 [place] [address] [address] May, Anxiety F41.9 [place] [address] [address] Apr, Anxiety F41.9 [place] [address] [address] 17 Mar, 2015 Routine gynecological examination V72.31 ; Pap test, as part of routine gynecological examination V76.2 ; Breast cancer screening V76.10 ; Dysmenorrhea 625.3 ; Lump of right breast 611.72 and Family history of ovarian cancer V16.41 [place] [address] [address] 14 Jan, 2015 [place] [address] [address] Jan, [place] [address] [address] Sep, [place] [address] [address] Sep, [facility] [address] [id number] [place] [address] Dec, [facility] [place] [facility] [address] [id number] [place] [address] Dec, [facility] [place] [facility] [address] [id number] [place] [address] Apr, [facility] [place] [facility] [address] [id number] [place] [address] Mar, [facility] [place] [facility] [address] [facility] [id number] [place] [address] Mar, [facility] [place] [facility] [address] [id number] [place] [address] Mar, [facility] [place] [facility] [address] [id number] [place] [address] Mar, [facility] [place] [facility] [address] [facility] [place] [address] 08 Jan, 2013 [facility] [place] [facility] [address] [facility] [place] [address] Jan, [facility] [place] [facility] [address] [facility] [place] [address] 31 Dec, 2012 [facility] [place] [facility] [address] [facility] [place] [address] 29 Dec, 2012 [facility] [place] [facility] [address] [id number] [place] [address] 28 Dec, 2012 [facility] [place] [facility] [address] [facility] [place] [address] Dec, [facility] [place] [facility] [address] [facility] [place] [address] 20 Dec, 2012 [facility] [place] [facility] [address] [facility] [place] [address] 20 Dec, 2012 [facility] [place] [facility] [address] [facility] [place] [address] 13 Oct, 2009 [facility] [place] [facility] [address] [id number] [place] [address] Sep, [facility] [address] [id number] [place] [address] Sep, [facility] [address] [id number] [place] [address] Sep, [facility] [address] [id number] [place] [address] Aug, [facility] [address] [id number] [place] [address] Aug, [facility] [address] [id number] [place] [address] Aug, [facility] [address] [id number] [place] [address] Jul, [facility] [address] [id number] [place] [address] Jul, [facility] [address] [id number] [place] [address] Jul, [facility] [address] [id number] [place] [address] Jun, [facility] [address] [id number] [place] [address] May, [facility] [address] [id number] [place] [address] Mar, IMMUNIZATIONS No Known Immunizations SOCIAL HISTORY Never Assessed REASON FOR VISIT PLAN OF CARE VITAL SIGNS Height 62 in 2014-01-02 Weight 121.6 lbs 2014-01-02 Temperature 98.6 degrees Fahrenheit 2014-01-02 Heart Rate 72 bpm 2014-01-02 Respiratory Rate 16 2014-01-02 Blood pressure systolic 110 mmHg 2014-01-02 Blood pressure diastolic 68 mmHg 2014-01-02 MEDICATIONS Unknown Medications RESULTS No Results PROCEDURES No Known procedures INSTRUCTIONS MEDICATIONS ADMINISTERED No Known Medications MEDICAL (GENERAL) HISTORY Type Description Date Medical History low blood pressure Medical History hx of vega's palsy Medical History depression Surgical History breast implant 2017 Hospitalization History UTI. Then got Hypotension. 2013 Hospitalization History child
--- OUTSIDE RECORDS SUMMARY | 2020-05-10 09:53 | XMS REPORT ---
Author Author Joanna Shaw Doctor Organization [facility] Address Unknown Phone Unavailable Care Team Providers Care Analysis Mgr Name Role Phone Migration, Doctor Unavailable Unavailable PROBLEMS Unknown Problems ALLERGIES No Information ENCOUNTERS Encounter Location Date Diagnosis [facility] [place] [address] [facility] [id number] [address] [place] [address] Apr, [facility] [place] [address] [facility] [id number] [address] [place] [address] Apr, [facility] [place] [address] [place] [id number] [address] [place] [address] Apr, [place] [address] [place] [id number] [address] [place] [address] Apr, [facility] [place] [address] [facility] [id number] [address] [place] [address] Mar, care in second trim fernando Z34.92 and 25 weeks gestation of Z3A.25 [place] [address] [facility] [id number] [address] [place] [address] Mar, care in third trime ster Z34.93 and 32 weeks gestation of Z3A.32 [place] [address] [place] [id number] [address] [place] [address] February, care in third trime ster Z34.93 and 29 weeks gestation of Z3A.29 [place] [address] [facility] [id number] [address] [place] [address] February, [place] [address] [place] [id number] [address] [place] [address] Jan, care in second trim fernando Z34.92 ; 25 weeks gestation of Z3A.25 ; Multigravida of advanced maternal age in second trimester O09.522 and Low lying placenta NOS or without hemorrhage, second trimester O44.42 [facility] [place] [address] [facility] [id number] [address] [place] [address] 02 Jan, 2020 care in second trim fernando Z34.92 ; 21 weeks gestation of Z3A.21 and Low lying placenta NOS or without hemorrhage, second trimester O44.42 [facility] [place] [address] [facility] [id number] [address] [place] [address] 27 Dec, 2019 care in second trim fernando Z34.92 and 17 weeks gestation of Z3A.17 [facility] [place] [address] [facility] [id number] [address] [place] [address] 05 Dec, 2019 care in second trim fernando Z34.92 ; 17 weeks gestation of Z3A.17 and Multigravida of advanced maternal age in second trimester O09.522 [place] [address] [facility] [id number] [address] [place] [address] 06 Nov, 2019 care in second trim fernando Z34.92 ; 13 weeks gestation of Z3A.13 and Influenza B J10.1 [facility] [place] [address] [facility] [id number] [address] [place] [address] Nov, [facility] [address] [facility] [id number] [address] [place] [address] 03 Nov, 2019 Influenza B J10.1 [facility] [place] [address] [facility] [id number] [address] [place] [address] Oct, care in first trime ster Z34.91 ; 9 weeks gestation of Z3A.09 and BMI 24.0-24.9, adult Z68.24 [facility] [place] [address] [facility] [id number] [address] [place] [address] Sep, care in first trime ster Z34.91 [place] [address] [facility] [id number] [address] [place] [address] Sep, care in first trime ster Z34.91 [place] [address] [place] [id number] [address] [place] [address] Sep, care in first trime ster Z34.91 [place] [address] [address] Sep, Normal in multigra renard Z34.80 [place] [address] [place] [id number] [address] [place] [address] Sep, care in first trime ster Z34.91 [place] [address] [place] [id number] [address] [place] [address] Sep, Dental examination Z01.20 [place] [address] [address] Sep, care in first trime ster Z34.91 ; Normal in multigravida Z34.80 ; Pap smear for cervical cancer screening Z12.4 ; Screen for STD (sexually transmitted disease) Z11.3 ; 8 weeks gestation of Z3A.08 and BMI 24.0-24.9, adult Z68.24 [place] [address] [address] Sep, Encounter for test , result unknown Z32.00 [place] [address] [address] Sep, Encounter for test , result unknown Z32.00 [place] [address] [place] [id number] [address] [place] [address] May, Female fertility problem N97 .9 [place] [address] [place] [id number] [address] [place] [address] Apr, Encounter for Depo-Provera c ontraception Z30.42 [place] [address] [place] [id number] [address] [place] [address] Apr, Dysfunctional uterine bleedi ng N93.8 [place] [address] [place] [id number] [address] [place] [address] February, Dysfunctional uterine bleedi ng N93.8 [facility] [place] [address] [facility] [id number] [address] [place] [address] February, [place] [address] [facility] [id number] [address] [place] [address] Jan, General counseling and advic e for contraceptive management Z30.09 and Encounter for Depo-Provera contraception Z30.42 [place] [address] [facility] [id number] [address] [place] [address] 27 Jan, 2017 Anxiety F41.9 [place] [address] [facility] [id number] [address] [place] [address] 13 Dec, 2016 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 [place] [address] [facility] [id number] [address] [place] [address] Jun, Anxiety F41.9 [place] [address] [place] [id number] [address] [place] [address] May, Anxiety F41.9 [place] [address] [place] [id number] [address] [place] [address] Apr, Anxiety F41.9 [place] [address] [place] [id number] [address] [place] [address] 17 Mar, 2015 Routine gynecological examin ation V72.31 ; Pap test, as part of routine gynecological examination V76.2 ; Breast cancer screening V76.10 ; Dysmenorrhea 625.3 ; Lump of right breast 611.72 and Family history of ovarian cancer V16.41 [place] [address] [facility] [id number] [address] [place] [address] Jan, [place] [address] [facility] [id number] [address] [place] [address] 13 Jan, 2015 [place] [address] [place] [id number] [address] [place] [address] Sep, [place] [address] [place] [id number] [address] [place] [address] Sep, [facility] [address] [id number] [address] [place] [address], [place] [address] Dec, [facility] [address] [id number] [address] [place] [address], [place] [address] Dec, [facility] [address] [id number] [address] [place] [address], [place] [address] Apr, [facility] [address] [id number] [address] [place] [address], [place] [address] Mar, [facility] [address] [id number] [address] [place] [address], [place] [address] Mar, [facility] [address] [id number] [address] [place] [address], [place] [address] Mar, [facility] [address] [id number] [address] [place] [address], [place] [address] Mar, [facility] [address] [id number] [address] [place] [address], [place] [address] Jan, [facility] [address] [id number] [address] [place] [address], [place] [address] Jan, [facility] [address] [id number] [address] [place] [address], [place] [address] 31 Dec, 2012 [facility] [address] [id number] [address] [place] [address], [place] [address] 29 Dec, 2012 [facility] [address] [id number] [address] [place] [address], [place] [address] 28 Dec, 2012 [facility] [address] [id number] [address] [place] [address], [place] [address] 22 Dec, 2012 [facility] [address] [id number] [address] [place] [address], [place] [address] 20 Dec, 2012 [facility] [address] [id number] [address] [place] [address], [place] [address] 20 Dec, 2012 [facility] [address] [id number] [address] [place] [address] Oct, [facility] [place] [address] [id number] [address] [place] [address] Sep, [facility] [place] [address] [id number] [address] [place] [address] Sep, [facility] [place] [address] [id number] [address] [place] [address] Sep, [facility] [place] [address] [id number] [address] [place] [address] Aug, [facility] [place] [address] [id number] [address] [place] [address] Aug, [facility] [place] [address] [id number] [address] [place] [address] Aug, [facility] [place] [address] [id number] [address] [place] [address] Jul, [facility] [place] [address] [id number] [address] [place] [address] Jul, [facility] [place] [address] [id number] [address] [place] [address] Jul, [facility] [place] [address] [id number] [address] [place] [address] Jun, [facility] [place] [address] [id number] [address] [place] [address] May, [facility] [place] [address] [id number] [address] [place] [address] Mar, IMMUNIZATIONS No Known Immunizations SOCIAL HISTORY [...]
--- OUTSIDE RECORDS SUMMARY | 2020-05-10 09:53 | XMS REPORT ---
Author Author Joanna Shaw Doctor Organization [facility] Address Unknown Phone Unavailable Care Team Providers Care Break Up Worker Name Role Phone Migration, Doctor Unavailable Unavailable PROBLEMS Type Condition ICD9-CM Code [id number] Code Onset Dates Condition S tatus SNOMED Code Problem Dysfunctional uterine bleeding N93.8 Active 18162691 ALLERGIES No Information ENCOUNTERS Encounter Location Date Diagnosis [place] [address] [address] 12 Apr, 2018 Encounter for Depo-Provera c ontraception Z30.42 [place] [address] [address] 12 Apr, 2018 Dysfunctional uterine bleedi ng N93.8 [id number] [place] [id number] [address] [place] [address] February, Dysfunctional uterine bleedi ng N93.8 [place] [address] [address] February, [place] [address] [address] 26 Jan, 2018 General counseling and advic e for contraceptive management Z30.09 and Encounter for Depo-Provera contraception Z30.42 [place] [address] [address] [place] [id number] [address] [place] [address] Jan, Anxiety F41.9 [place] [address] [address] [place] [id number] [address] [place] [address] Dec, 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 [place] [address] [place] [id number] [address] [place] [address] Jun, Anxiety F41.9 [place] [address] [address] [place] [id number] [address] [place] [address] May, Anxiety F41.9 [facility] [address] [id number] [address] [place] [address] Apr, Anxiety F41.9 [facility] [address] [id number] [address] [place] [address] 17 Mar, 2015 Routine gynecological examin ation V72.31 ; Pap test, as part of routine gynecological examination V76.2 ; Breast cancer screening V76.10 ; Dysmenorrhea 625.3 ; Lump of right breast 611.72 and Family history of ovarian cancer V16.41 [facility] [address] [id number] [address] [place] [address] 14 Jan, 2015 [facility] [address] [id number] [address] [place] [phone] Jan, [facility] [address] [id number] [address] [place] [phone] Sep, [facility] [address] [id number] [address] [place] [address] Sep, [facility] [address] [id number] [address] [place] [phone] Dec, [facility] [address] [id number] [address] [place] [phone] Dec, [facility] [address] [id number] [address] [place] [phone] Apr, [facility] [address] [id number] [address] [place] [phone] Mar, [facility] [address] [id number] [address] [place] [phone] Mar, [facility] [address] [id number] [address] [place] [phone] Mar, [facility] [address] [id number] [address] [place] [phone] Mar, [facility] [address] [id number] [address] [place] [address], [place] [address] 08 Jan, 2013 [facility] [address] [id number] [address] [place] [address], [place] [address] Jan, [facility] [address] [id number] [address] [place] [address], [place] [address] 31 Dec, 2012 [facility] [address] [id number] [address] [place] [address], [place] [address] 29 Dec, 2012 [facility] [address] [id number] [address] [place] [address], [place] [address] 28 Dec, 2012 [facility] [address] [id number] [address] [place] [address], [place] [address] 22 Dec, 2012 [facility] [address] [id number] [address] [place] [address], [place] [address] 20 Dec, 2012 [facility] [address] [id number] [address] [place] [address], [place] [address] 20 Dec, 2012 [facility] [address] [id number] [address] [place] [address], [place] [address] 13 Oct, 2009 [facility] [address] [id number] [address] [place] [address], [place] [address] 31 Sep, 2009 [facility] [address] [id number] [address] [place] [address], [place] [address] 23 Sep, 2009 [facility] [address] [id number] [address] [place] [address], [place] [address] 07 Sep, 2009 [facility] [address] [id number] [address] [place] [address], [place] [address] 23 Aug, 2009 [facility] [address] [id number] [address] [place] [address], [place] [address] Aug, [facility] [address] [id number] [address] [place] [address], [place] [address] 11 Aug, 2009 [facility] [address] [id number] [address] [place] [address], [place] [address] Jul, [facility] [address] [id number] [address] [place] [phone] Jul, [facility] [address] [id number] [address] [place] [phone] Jul, [facility] [address] [id number] [address] [place] [phone] Jun, [facility] [address] [id number] [address] [place] [phone] May, [facility] [address] [id number] [address] [place] [phone] Mar, IMMUNIZATIONS No Known Immunizations SOCIAL HISTORY Never Assessed REASON FOR VISIT [facility] [place] PLAN OF CARE VITAL SIGNS MEDICATIONS Medication Instructions Dosage Frequency Start Date End Date Duration S tatus Cipro 500 mg 1 tablet by Oral route every 12 hours for 7 day(s) Jan, Active Amoxicillin 500 mg 2 capsule by Oral route 2 times per day for 10 day(s) Dec, Active Ciprofloxacin 500 mg 1 tablet by Oral ro deshawn every 12 hours for 10 day(s) for urine infection Dec, Active Pyridium 200 mg 1 tablet by Oral rou te 3 times per day for 3 day(s) Take compareit4me meals for bladder pain Jan, Activ e RESULTS No Results PROCEDURES No Known procedures INSTRUCTIONS MEDICATIONS ADMINISTERED No Known Medications MEDICAL (GENERAL) HISTORY Type Description Date Medical History low blood pressure Medical History hx of vega's palsy Medical History depression Surgical History breast implant Hospitalization History UTI. Then got Hypotension. 2013
--- OUTSIDE RECORDS SUMMARY | 2020-05-10 09:53 | XMS REPORT ---
Author Author Joanna Shaw Doctor Organization [facility] Address Unknown Phone Unavailable Care Team Providers Care Farm Tractor Operator Name Role Phone Migration, Doctor Unavailable Unavailable PROBLEMS Type Condition ICD9-CM Code PAO57-NR Code Onset Dates Condition S tatus SNOMED Code Problem Dysfunctional uterine bleeding N93.8 Active [id number] ALLERGIES No Information ENCOUNTERS Encounter Location Date Diagnosis [place] [address] [address] 12 Apr, 2018 Encounter for Depo-Provera c ontraception Z30.42 [place] [address] [address] 12 Apr, 2018 Dysfunctional uterine bleedi ng N93.8 [place] [address] [place] [id number] [address] [place] [address] February, Dysfunctional uterine bleedi ng N93.8 [place] [address] [address] February, [facility] [address] [address] 26 Jan, 2018 General counseling and advic e for contraceptive management Z30.09 and Encounter for Depo-Provera contraception Z30.42 [place] [address] [address] [place] [id number] [address] [place] [address] Jan, Anxiety F41.9 [place] [address] [address] [place] [id number] [address] [place] [address] Dec, 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 [place] [address] [place] [id number] [address] [place] [address] Jun, Anxiety F41.9 [place] [address] [place] [id number] [address] [place] [address] May, Anxiety F41.9 [facility] [address] [id number] [address] [place] [address] Apr, Anxiety F41.9 [facility] [address] [id number] [address] [place] [address] 17 Mar, 2015 Routine gynecological examin ation V72.31 ; Pap test, as part of routine gynecological examination V76.2 ; Breast cancer screening V76.10 ; Dysmenorrhea 625.3 ; Lump of right breast 611.72 and Family history of ovarian cancer V16.41 [facility] [address] [id number] [address] [place] [address] 14 Jan, 2015 [facility] [address] [id number] [address] [place] [address] Jan, [facility] [address] [id number] [address] [place] [address] Sep, [facility] [address] [id number] [address] [place] [address] Sep, [facility] [address] [id number] [address] [place] [address] Dec, [facility] [address] [id number] [address] [place] [phone] Dec, [facility] [address] [id number] [address] [place] [phone] Apr, [facility] [address] [id number] [address] [place] [phone] Mar, [facility] [address] [id number] [address] [place] [phone] Mar, [facility] [address] [id number] [address] [place] [phone] Mar, [facility] [address] [id number] [address] [place] [phone] Mar, [facility] [address] [id number] [address] [place] [address], [place] [address] 08 Jan, 2013 [facility] [address] [id number] [address] [place] [address], [place] [address] Jan, [facility] [address] [id number] [address] [place] [address], [place] [address] 31 Dec, 2012 [facility] [address] [id number] [address] [place] [address], [place] [address] 29 Dec, 2012 [facility] [address] [id number] [address] [place] [address], [place] [address] 28 Dec, 2012 [facility] [address] [id number] [address] [place] [address], [place] [address] 22 Dec, 2012 [facility] [address] [id number] [address] [place] [address], [place] [address] 20 Dec, 2012 [facility] [address] [id number] [address] [place] [address], [place] [address] 20 Dec, 2012 [facility] [address] [id number] [address] [place] [address], [place] [address] 13 Oct, 2009 [facility] [address] [id number] [address] [place] [address], [place] [address] 31 Sep, 2009 [facility] [address] [id number] [address] [place] [address], [place] [address] 23 Sep, 2009 [facility] [address] [id number] [address] [place] [address], [place] [address] 07 Sep, 2009 [facility] [address] [id number] [address] [place] [address], [place] [address] 23 Aug, 2009 [facility] [address] [id number] [address] [place] [address], [place] [address] Aug, [facility] [address] [id number] [address] [place] [address], [place] [address] 11 Aug, 2009 [facility] [address] [id number] [address] [place] [address], [place] [address] Jul, [facility] [address] [facility] [id number] [address] [place] [address] Jul, [facility] [address] [facility] [id number] [address] [place] [phone] Jul, [facility] [address] [facility] [id number] [address] [place] [phone] Jun, [facility] [address] [facility] [id number] [address] [place] [phone] May, [facility] [address] [facility] [id number] [address] [place] [phone] Mar, IMMUNIZATIONS No Known Immunizations SOCIAL HISTORY Never Assessed REASON FOR VISIT [facility] [place] C[place] VITAL SIGNS MEDICATIONS Unknown Medications RESULTS No Results PROCEDURES No Known procedures INSTRUCTIONS MEDICATIONS ADMINISTERED No Known Medications MEDICAL (GENERAL) HISTORY Type Description Date Medical History low blood pressure Medical History hx of vega's palsy Medical History depression Surgical History breast implant Hospitalization History UTI. Then got Hypotension. 2013
--- OUTSIDE RECORDS SUMMARY | 2020-05-10 09:53 | XMS REPORT ---
Author Author Joanna Shaw Doctor Organization [facility] Address Unknown Phone Unavailable Care Team Providers Care Spouting Installer Name Role Phone Migration, Doctor Unavailable Unavailable PROBLEMS Type Condition ICD9-CM Code WCG03-TY Code Onset Dates Condition S tatus SNOMED Code Problem Dysfunctional uterine bleeding N93.8 Active 61196748 ALLERGIES No Information ENCOUNTERS Encounter Location Date Diagnosis [place] [address] [address] 12 Apr, 2018 Encounter for Depo-Provera c ontraception Z30.42 [place] [address] [address] 12 Apr, 2018 Dysfunctional uterine bleedi ng N93.8 [place] 736901 [place] [id number] [address] [place] [address] February, Dysfunctional uterine bleedi ng N93.8 [place] [address] [address] February, [facility] [address] [address] Jan, General counseling and advic e for contraceptive management Z30.09 and Encounter for Depo-Provera contraception Z30.42 [place] 736901 [place] [id number] [address] [place] [address] Jan, Anxiety F41.9 [place] [address] [place] [id number] [address] [place] [address] Dec, 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 [place] [address] [place] [id number] [address] [place] [address] Jun, Anxiety F41.9 [place] [address] [address] [place] [id number] [address] [place] [address] May, Anxiety F41.9 [facility] [address] [id number] [address] [place] [address] Apr, Anxiety F41.9 [facility] [address] [id number] [address] [place] [address] 17 Mar, 2015 Routine gynecological examin ation V72.31 ; Pap test, as part of routine gynecological examination V76.2 ; Breast cancer screening V76.10 ; Dysmenorrhea 625.3 ; Lump of right breast 611.72 and Family history of ovarian cancer V16.41 [facility] [address] [id number] [address] [place] [address] 14 Jan, 2015 [facility] [address] [id number] [address] [place] [address] Jan, [facility] [address] [id number] [address] [place] [address] Sep, [facility] [address] [id number] [address] [place] [address] Sep, [facility] [address] [id number] [address] [place] [address] Dec, [facility] [address] [id number] [address] [place] [address] Dec, [facility] [address] [id number] [address] [place] [address] Apr, [facility] [address] [id number] [address] [place] [phone] Mar, [facility] [address] [id number] [address] [place] [phone] Mar, [facility] [address] [id number] [address] [place] [address] Mar, [facility] [address] [id number] [address] [place] [phone] Mar, [facility] [address] [id number] [address] [place] [address], [place] [address] 08 Jan, 2013 [facility] [address] [id number] [address] [place] [address], [place] [address] Jan, [facility] [address] [id number] [address] [place] [address], [place] [address] 31 Dec, 2012 [facility] [address] [id number] [address] [place] [address], [place] [address] 29 Dec, 2012 [facility] [address] [id number] [address] [place] [address], [place] [address] 28 Dec, 2012 [facility] [address] [id number] [address] [place] [address], [place] [address] 22 Dec, 2012 [facility] [address] [id number] [address] [place] [address], [place] [address] 20 Dec, 2012 [facility] [address] [id number] [address] [place] [address], [place] [address] 20 Dec, 2012 [facility] [address] [id number] [address] [place] [address], [place] [address] 13 Oct, 2009 [facility] [address] [id number] [address] [place] [address], [place] [address] 31 Sep, 2009 [facility] [address] [id number] [address] [place] [address], [place] [address] 23 Sep, 2009 [facility] [address] [id number] [address] [place] [address], [place] [address] 07 Sep, 2009 [facility] [address] [id number] [address] [place] [address], [place] [address] 23 Aug, 2009 [facility] [address] [id number] [address] [place] [address], [place] [address] Aug, [facility] [address] [id number] [address] [place] [address], [place] [address] 11 Aug, 2009 [facility] [address] [id number] [address] [place] [address], [place] [address] Jul, [facility] [address] [facility] [id number] [address] [place] [phone] Jul, [facility] [address] [facility] [id number] [address] [place] [phone] Jul, [facility] [address] [facility] [id number] [address] [place] [phone] Jun, [facility] [address] [facility] [id number] [address] [place] [phone] May, [facility] [address] [facility] [id number] [address] [place] [phone] Mar, IMMUNIZATIONS No Known Immunizations SOCIAL HISTORY Never Assessed REASON FOR VISIT [facility] [place]AN OF CARE VITAL SIGNS MEDICATIONS Unknown Medications RESULTS No Results PROCEDURES No Known procedures INSTRUCTIONS MEDICATIONS ADMINISTERED No Known Medications MEDICAL (GENERAL) HISTORY Type Description Date Medical History low blood pressure Medical History hx of vega's palsy Medical History depression Surgical History breast implant Hospitalization History UTI. Then got Hypotension. 2013
--- OUTSIDE RECORDS SUMMARY | 2020-05-10 09:53 | XMS REPORT ---
Author Author Joanna QUINONES Organization [facility] Address [address] [place] [address] Care Team Providers Care Aerospace Engineer Officer Armament Name Role Phone TRAVIS QUINONES Unavailable PROBLEMS Type Condition ICD9-CM Code HSN99-ZO Code Onset Dates Condition S tatus SNOMED Code Problem Dysfunctional uterine bleeding N93.8 Active [id number] ALLERGIES No Information ENCOUNTERS Encounter Location Date Diagnosis [place] [id number] [place] [id number] [address] [place] [address] Apr, Encounter for Depo-Provera c ontraception Z30.42 [facility] [address] [id number] [address] [place] [address] Apr, Dysfunctional uterine bleedi ng N93.8 [facility] [address] [place] [id number] [address] [place] [address] February, Dysfunctional uterine bleedi ng N93.8 [facility] [address] [place] [address] [id number] [address] [place] [address] February, [facility] [address] [id number] [address] [place] [address] Jan, General counseling and advic e for contraceptive management Z30.09 and Encounter for Depo-Provera contraception Z30.42 [place] [address] [place] [id number] [address] [place] [address] Jan, Anxiety F41.9 [place] [address] [place] [id number] [address] [place] [address] Dec, 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 [place] [address] [place] [id number] [address] [place] [address] Jun, Anxiety F41.9 [facility] [address] [id number] [address] [place] [address] May, Anxiety F41.9 [facility] [address] [id number] [address] [place] [address] Apr, Anxiety F41.9 [facility] [address] [id number] [address] [place] [address] Mar, Routine gynecological examin ation V72.31 ; Pap test, as part of routine gynecological examination V76.2 ; Breast cancer screening V76.10 ; Dysmenorrhea 625.3 ; Lump of right breast 611.72 and Family history of ovarian cancer V16.41 [facility] [address] [id number] [address] [place] [address] Jan, [facility] [address] [id number] [address] [place] [address] Jan, [facility] [address] [id number] [address] [place] [address] Sep, [facility] [address] [id number] [address] [place] [phone] Sep, [facility] [address] [id number] [address] [place] [phone] Dec, [facility] [address] [id number] [address] [place] [address] Dec, [facility] [address] [id number] [address] [place] [address] Apr, [facility] [address] [id number] [address] [place] [address] Mar, [facility] [address] [id number] [address] [place] [address] Mar, [facility] [address] [id number] [address] [place] [address] Mar, [facility] [address] [id number] [address] [place] [address], [place] [address] Mar, [facility] [address] [id number] [address] [place] [address], [place] [address] 08 Jan, 2013 [facility] [address] [id number] [address] [place] [address], [place] [address] Jan, [facility] [address] [id number] [address] [place] [address], [place] [address] 31 Dec, 2012 [facility] [address] [id number] [address] [place] [address], [place] [address] 29 Dec, 2012 [facility] [address] [id number] [address] [place] [address], [place] [address] 28 Dec, 2012 [facility] [address] [id number] [address] [place] [address], [place] [address] Dec, [facility] [address] [id number] [address] [place] [address], [place] [address] 20 Dec, 2012 [facility] [address] [id number] [address] [place] [address], [place] [address] Dec, [facility] [address] [id number] [address] [place] [address], [place] [address] Oct, [facility] [address] [id number] [address] [place] [address], [place] [address] 31 Sep, 2009 [facility] [address] [id number] [address] [place] [address], [place] [address] 23 Sep, 2009 [facility] [address] [id number] [address] [place] [address], [place] [address] 07 Sep, 2009 [facility] [address] [id number] [address] [place] [address], [place] [address] Aug, [facility] [address] [id number] [address] [place] [address], [place] [address] 11 Aug, 2009 [facility] [address] [id number] [address] [place] [address] [address] Aug, [facility] [address] [facility] [id number] [address] [place] [phone] Jul, [facility] [address] [facility] [id number] [address] [place] [address] Jul, [facility] [address] [facility] [id number] [address] [place] [address] Jul, [facility] [address] [facility] [id number] [address] [place] [address] Jun, [facility] [address] [facility] [id number] [address] [place] [address] May, [facility] [address] [facility] [id number] [address] [place] [address] Mar, IMMUNIZATIONS No Known Immunizations SOCIAL HISTORY Never Assessed REASON FOR VISIT Lab (walk-in) PLAN OF CARE VITAL SIGNS MEDICATIONS Unknown Medications RESULTS No Results PROCEDURES Procedure Date Ordered Result Body Site COMPLETE CBC W/AUTO DIFF WBC May 05, 2018 COMPREHEN METABOLIC PANEL May 05, 2018 ASSAY THYROID STIM HORMONE May 05, 2018 GONADOTROPIN (LH) May 05, 2018 ASSAY OF PROLACTIN May 05, 2018 ASSAY OF ESTRADIOL May 05, 2018 INSTRUCTIONS MEDICATIONS ADMINISTERED No Known Medications MEDICAL (GENERAL) HISTORY Type Description Date Surgical History breast implant Hospitalization History UTI. Then got Hypotension. 2013
--- OUTSIDE RECORDS SUMMARY | 2020-05-10 09:53 | XMS REPORT ---
Author Author Joanna Shaw Doctor Organization [facility] Address Unknown Phone Unavailable Care Team Providers Care Cardiovascular Technologist Name Role Phone Migration, Doctor Unavailable Unavailable PROBLEMS Unknown Problems ALLERGIES No Information ENCOUNTERS Encounter Location Date Diagnosis [place] [address] [place] [id number] [address] [place] [address] Mar, [place] [address] [address] February, [place] [address] [place] [id number] [address] [place] [address] Jan, care in second trim fernando Z34.92 ; 25 weeks gestation of Z3A.25 ; Multigravida of advanced maternal age in second trimester O09.522 and Low lying placenta NOS or without hemorrhage, second trimester O44.42 [place] [address] [place] [id number] [address] [place] [address] 02 Jan, 2020 care in second trim fernando Z34.92 ; 21 weeks gestation of Z3A.21 and Low lying placenta NOS or without hemorrhage, second trimester O44.42 [place] [address] [place] [id number] [address] [place] [address] Dec, care in second trim fernando Z34.92 and 17 weeks gestation of Z3A.17 [place] [address] [place] [id number] [address] [place] [address] Dec, care in second trim fernando Z34.92 ; 17 weeks gestation of Z3A.17 and Multigravida of advanced maternal age in second trimester O09.522 [place] [address] [place] [id number] [address] [place] [address] Nov, care in second trim fernando Z34.92 ; 13 weeks gestation of Z3A.13 and Influenza B J10.1 [facility] [address] [facility] [id number] [address] [place] [address] 03 Nov, 2019 [facility] [address] [facility] [id number] [address] [place] [address] 03 Nov, 2019 Influenza B J10.1 [facility] [address] [facility] [id number] [address] [place] [address] 09 Oct, 2019 care in first trime ster Z34.91 ; 9 weeks gestation of Z3A.09 and BMI 24.0-24.9, adult Z68.24 [place] [address] [facility] [id number] [address] [place] [address] Sep, care in first trime ster Z34.91 [place] [address] [facility] [id number] [address] [place] [address] Sep, care in first trime ster Z34.91 [place] [address] [facility] [id number] [address] [place] [address] Sep, care in first trime ster Z34.91 [place] [address] [facility] [id number] [address] [place] [address] Sep, Normal in multigra renard Z34.80 [place] [address] [facility] [id number] [address] [place] [address] Sep, care in first trime ster Z34.91 [place] [address] [facility] [id number] [address] [place] [address] Sep, Dental examination Z01.20 [place] [address] [facility] [id number] [address] [place] [address] Sep, care in first trime ster Z34.91 ; Normal in multigravida Z34.80 ; Pap smear for cervical cancer screening Z12.4 ; Screen for STD (sexually transmitted disease) Z11.3 ; 8 weeks gestation of Z3A.08 and BMI 24.0-24.9, adult Z68.24 [facility] [address] [facility] [id number] [address] [place] [address] Sep, Encounter for test , result unknown Z32.00 [facility] [address] [facility] [id number] [address] [place] [address] Sep, Encounter for test , result unknown Z32.00 [place] [address] [place] [id number] [address] [place] [address] May, Female fertility problem N97 .9 [place] [address] [place] [id number] [address] [place] [address] Apr, Encounter for Depo-Provera c ontraception Z30.42 [place] [address] [place] [id number] [address] [place] [address] Apr, Dysfunctional uterine bleedi ng N93.8 [place] [address] [place] [id number] [address] [place] [address] February, Dysfunctional uterine bleedi ng N93.8 [place] [address] [place] [id number] [address] [place] [address] February, [place] [address] [place] [id number] [address] [place] [address] Jan, General counseling and advic e for contraceptive management Z30.09 and Encounter for Depo-Provera contraception Z30.42 [place] [address] [facility] [id number] [address] [place] [address] Jan, Anxiety F41.9 [place] [address] [place] [id number] [address] [place] [address] Dec, 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 [place] [address] [facility] [id number] [address] [place] [address] Jun, Anxiety F41.9 [place] [address] [place] [id number] [address] [place] [address] May, Anxiety F41.9 [facility] [address] [id number] [address] [place] [address] Apr, Anxiety F41.9 [facility] [address] [id number] [address] [place] [address] 17 Mar, 2015 Routine gynecological examin ation V72.31 ; Pap test, as part of routine gynecological examination V76.2 ; Breast cancer screening V76.10 ; Dysmenorrhea 625.3 ; Lump of right breast 611.72 and Family history of ovarian cancer V16.41 [facility] [address] [id number] [address] [place] [address] 14 Jan, 2015 [facility] [address] [id number] [address] [place] [address] 13 Jan, 2015 [facility] [address] [id number] [address] [place] [address] Sep, [facility] [address] [id number] [address] [place] [address] Sep, [facility] [address] [id number] [address] [place] [address] Dec, [facility] [address] [id number] [address] [place] [address] Dec, [facility] [address] [id number] [address] [place] [address] Apr, [facility] [address] [id number] [address] [place] [address] Mar, [facility] [address] [id number] [address] [place] [address] Mar, [facility] [address] [id number] [address] [place] [address] Mar, [facility] [address] [id number] [address] [place] [address] Mar, [facility] [address] [id number] [address] [place] [address] [place] [address] 08 Jan, 2013 [facility] [address] [id number] [address] [place] [address], [place] [address] Jan, [facility] [address] [id number] [address] [place] [address], [place] [address] 31 Dec, 2012 [facility] [address] [id number] [address] [place] [address], [place] [address] 29 Dec, 2012 [facility] [address] [id number] [address] [place] [address], [place] [address] 28 Dec, 2012 [facility] [address] [id number] [address] [place] [address], [place] [address] 22 Dec, 2012 [facility] [address] [id number] [address] [place] [address], [place] [address] 20 Dec, 2012 [facility] [address] [id number] [address] [place] [address], [place] [address] 20 Dec, 2012 [facility] [address] [id number] [address] [place] [address], [place] [address] Oct, [facility] [address] [id number] [address] [place] [address], [place] [address] 31 Sep, 2009 [facility] [address] [id number] [address] [place] [address], [place] [address] Sep, [facility] [address] [id number] [address] [place] [address], [place] [address] 07 Sep, 2009 [facility] [address] [id number] [address] [place] [address], [place] [address] 23 Aug, 2009 [facility] [address] [id number] [address] [place] [address], [place] [address] Aug, [facility] [address] [id number] [address] [place] [address], [place] [address] Aug, [facility] [address] [id number] [address] [place] [address], [place] [address] 28 Jul, 2009 [facility] [address] [facility] [id number] [address] [place] [address] Jul, [facility] [address] [facility] [id number] [address] [place] [address] Jul, [facility] [address] [facility] [id number] [address] [place] [address] Jun, [facility] [address] [facility] [id number] [address] [place] [address] May, [facility] [address] [facility] [id number] [address] [place] [address] Mar, IMMUNIZATIONS No Known Immunizations SOCIAL HISTORY Never Assessed REASON FOR VISIT PLAN OF CARE VITAL SIGNS Height 62 in 2013-04-05 Weight 124.44 lbs 2013-04-05 Temperature 97.8 degrees Fahrenheit 2013-04-05 Heart Rate 80 bpm 2013-04-05 Respiratory Rate 20 2013-04-05 Blood pressure systolic 100 mmHg 2013-04-05 Blood pressure diastolic 70 mmHg 2013-04-05 MEDICATIONS Unknown Medications RESULTS No Results PROCEDURES Procedure Date Ordered Result Body Site INJ METHYLPRDNISOLONE ACTAT 80 MG April 05, 2013 MRI BRAIN W/O&W DYE April 05, 2013 INSTRUCTIONS MEDICATIONS ADMINISTERED No Known Medications MEDICAL (GENERAL) HISTORY Type Description Date Medical History low blood pressure Medical History hx of vega's palsy Medical History depression Surgical History breast implant 2018 Hospitalization History UTI. Then got Hypotension. 2014 Hospitalization History child
--- OUTSIDE RECORDS SUMMARY | 2020-05-10 09:53 | XMS REPORT ---
Author Author Joanna YOUNGER Organization [employer] Address Unknown Phone Unavailable Care Team Providers Care Candy Maker Helper Name Role Phone ALVARO YOUNGER CP Unavailable [...] Instructions Start Date End Date Status Dosage Paroxetine HCl [facility] [address]-00 20 mg Orally Once a day May 22 16 1 tablet in the morning Ativan [facility] [address]-68 0.5 MG Orally every 6 hrs May 22, 2016 1 tablet as needed Procedures Procedure Coding System Code Date Office Visit, Est Pt., Level 3 CPT-4 22447 J [facility] 2015 Vital Signs Date/Time: May 22, 2016 Cardiac Monitoring Heart Rate 72 bpm Weight 133 lbs Height 62 in BMI 24.32 Index Blood Pressure Diastolic 68 mmHg Blood Pressure Systolic 106 mmHg Results No Known Results Summary Purpose [employer] Submission
--- OUTSIDE RECORDS SUMMARY | 2020-05-10 09:54 | XMS REPORT | Continuity of Care Document ---
Author Organization Unknown Address Unknown Phone Unavailable Allergies Active Description Code Type Severity Reaction Onset Reported/Identified Relationship to Patient Clinical Status Yes NKANo Known Allergies NKA Miscellaneous Allergy Unknown N/A 03/26/2007 Medications There is no data. 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 0 SKIN SENSATION DISTURB 04/12/2015 OLIVIA HICKMAN, JANETTE Fuentes Ot 344.9 04/12/2015 OLIVIA HICKMAN, JANETTE Fuentes Ot 780.79 04/12/2015 OLIVIA HICKMAN, JANETTE Fuentes Ot 351.0 04/12/2015 JANETTE BAKER MD Ot 344.9 04/12/2015 JANETTE BAKER MD Ot 780.79 04/12/2015 OLIVIA HICKMAN, JANETTE Fuentes Ot 351.0 04/19/2015 JANETTE BAKER MD Ot 344.9 04/19/2015 JANETTE BAKER MD Ot 780.79 04/19/2015 JANETTE BAKER MD M Ot 351.0 04/24/2015 ZAMZAM LOPEZ APRN Ot 611.72 07/06/2016 ALVARO LONG DO Ot S06.0X9A CONCUSSION W LOSS OF CONSCIOUSNESS OF UN 07/06/2016 ALVARO LONG DO Ot S06.9X9A UNSP INTRACRANIAL INJURY W LOC OF UNSP D 07/06/2016 ALVARO LONG DO Ot S13.4XXA SPRAIN OF LIGAMENTS OF CERVICAL SPINE, I 07/06/2016 ALVARO LONG DO Ot W07.XXXA FALL FROM CHAIR, INITIAL ENCOUNTER 07/06/2016 ALVARO LONG DO, Ot Y92.[address] IN [facility] NON-INSTITUT (PRIVATE 07/06/2016 ALVARO LONG DO Ot Y99.8 OTHER EXTERNAL CAUSE STATUS 07/06/2016 ALVARO LONG DO Ot Z79.899 OTHER ASSISTED (CURRENT) DRUG THERAPY 07/08/2016 ALVARO LONG DO Ot S06.0X9A CONCUSSION W LOSS OF CONSCIOUSNESS OF UN 07/08/2016 ALVARO LONG DO Ot S06.9X9A UNSP INTRACRANIAL INJURY W LOC OF [facility] D 07/08/2016 ALVARO LONG DO Manuel Ot S13.4XXA SPRAIN OF LIGAMENTS OF CERVICAL SPINE, I 07/08/2016 ALVARO LONG DO Manuel Ot W07.XXXA FALL FROM CHAIR, INITIAL ENCOUNTER 07/08/2016 ALVARO LONG DO Manuel Ot Y92.[address] IN [facility] NON-INSTITUT (PRIVATE 07/08/2016 ETHAN MARIE ALVARO Jackson Ot Y99.8 OTHER EXTERNAL CAUSE STATUS 07/08/2016 ALVARO LONG DO Manuel Ot Z79.899 OTHER ASSISTED (CURRENT) DRUG THERAPY 07/08/2016 ALVARO LONG DO Ot S06.0X9A CONCUSSION W LOSS OF CONSCIOUSNESS OF UN 07/08/2016 ALVARO LONG DO Ot S06.9X9A UNSP INTRACRANIAL INJURY W LOC OF [facility] D 07/08/2016 ETHAN MARIE ALVARO Jackson Ot S13.4XXA SPRAIN OF LIGAMENTS OF CERVICAL SPINE, I 07/08/2016 ALVARO LONG DO Manuel Ot W07.XXXA FALL FROM CHAIR, INITIAL ENCOUNTER 07/08/2016 ETHAN MARIE ALVARO Jackson Ot Y92.[address] IN [facility] NON-INSTITUT (PRIVATE 07/08/2016 ETHAN MARIE ALVARO Jackson Ot Y99.8 OTHER EXTERNAL CAUSE STATUS 07/08/2016 ETHAN MARIE ALVARO Jackson Ot 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 07/15/2016 ALVARO LONG DO Ot S06.0X9A CONCUSSION W LOSS OF CONSCIOUSNESS OF UN 07/15/2016 ALVARO LONG DO Ot S06.9X9A UNSP INTRACRANIAL INJURY W LOC OF [facility] D 07/15/2016 ETHAN MARIE ALVARO Jackson Ot S13.4XXA SPRAIN OF LIGAMENTS OF CERVICAL SPINE, I 07/15/2016 ALVARO LONG DO Manuel Ot W07.XXXA FALL FROM CHAIR, INITIAL ENCOUNTER 07/15/2016 ETHAN MARIE ALVARO Jackson Ot Y92.[address] IN [facility] NON-INSTITUT (PRIVATE 07/15/2016 ALVARO LONG DO Ot Y99.8 OTHER EXTERNAL CAUSE STATUS 07/15/2016 ALVARO LONG DO Ot Z79.899 OTHER ASSISTED (CURRENT) DRUG THERAPY 03/29/2018 JANETTE BAKER MD Ot 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 Results Test Result Range TSH - 05/05/18 14:12 TSH 1.35 mIU/L NRG PROLACTIN - 06/13/19 14:27 PROLACTIN 7.0 ng/mL NRG TSH - 06/13/19 14:27 TSH 1.13 mIU/L NRG TESTOSTERONE, TOTAL (WOMEN, CHILDREN, HY POGONADAL MALES) - 06/13/19 14:27 TESTOSTERONE, TOTAL, LC/MS/MS 10 ng/dL 2-45 FREE TESTOSTERONE 1.7 pg/mL 0.1-6.4 TEST, SERUM (QUAL) - 09/27/19 10:38 HCG, TOTAL, QL POSITIVE See Note: HCG, QUANTITATIVE - 09/28/19 15:19 HCG, TOTAL, QN 144 mIU/mL NRG SUREPATH PAP AND HPV mRNA E6/E7 - 19:00 CLINICAL INFORMATION: NRG LMP: NRG PREV. PAP: NRG PREV. BX: NRG SOURCE: Cervix NRG STATEMENT OF ADEQUACY: NRG INTERPRETATION/RESULT: NRG VICE PRESIDENT OF RECRUITING: NRG HPV mRNA E6/E7, SUREPATH VIAL Not Detected NOT DETECTED COMMENT NRG HCG, QUANTITATIVE - 10/04/19 15:40 HCG, TOTAL, QN 2611 mIU/mL NRG GLUCOSE GRACE 1 HOUR - 02/22/20 16:14 GLUCOSE, POSTPRANDIAL/ 1 HOUR 108 mg/dL See Note: Complete blood count (CBC) with automate d white blood cell (WBC) differential - 05/10/20 08:00 Blood leukocytes automated count (number/volume) 9.2 10*3/uL 4.3-11.0 Blood erythrocytes automated count (number/volume) 3.95 10*6/uL 4.35-5.85 Venous blood hemoglobin measurement (mass/volume) 12.4 g/dL 11.5-16.0 Blood hematocrit (volume fraction) 36 % 35-52 Automated erythrocyte mean corpuscular volume 91 [ foz_us] 80-99 Automated erythrocyte mean corpuscular h emoglobin (mass per erythrocyte) 31 pg 25-34 Automated erythrocyte mean corpuscular h emoglobin concentration measurement (mass/volume) 35 g/dL 32-36 Automated erythrocyte distribution width ratio 14. 1 % 10.0- 14.5 Automated blood platelet count (count/volume) 245 10*3/uL 130-400 Automated blood platelet mean volume measurement 10.2 [foz_us] 7.4-10.4 Automated blood neutrophils/100 leukocytes 71 % 42-75 Automated blood lymphocytes/100 leukocytes 19 % 12-44 Blood monocytes/100 leukocytes 9 % 0-12 Automated blood eosinophils/100 leukocytes 1 % 0-10 Automated blood basophils/100 leukocytes 0 % 0-10 Blood neutrophils automated count (number/volume) 6.5 10*3 1.8-7.8 Blood lymphocytes automated count (number/volume) 1.8 10*3 1.0-4.0 Blood monocytes automated count (number/volume) 0. 8 10*3 0.0-1.0 Automated eosinophil count 0.1 10*3/uL 0 .0-0.3 Automated blood basophil count (count/volume) 0.0 10*3/uL 0.0-0.1 Blood type T Indirect antibody screen pa humberto - 05/10/20 08:19 WRISTBAND NUMBER [id number] NRG ABO+Rh group OP NRG Blood group antibody screen NEGATIVE NR G Encounters ACCT No. Visit Date/Time Discharge Status Pt. Type Provider Facility Loc./Unit Complaint [id number] 05/07/2020 15:40:00 ACT Outpatient [facility] [id number] 02/22/2020 15:00:00 Document Registration [id number] 10/04/2019 15:35:00 Document Registration [id number] 09/28/2019 13:20:00 Document Registration [id number] 09/27/2019 10:00:00 Document Registration [id number] 06/13/2019 14:00:00 Document Registration [id number] 05/05/2018 12:20:00 Document Registration [id number] 03/24/2018 16:32:00 018 23:59:59 CLS Preadmit TRAVIS QUINONES LANDSCAPE PHOTOGRAPHER [facility] RAD DYSFUNCTIONAL U TERINE BLEEDING [id number] 07/06/2016 18:02:00 016 20:25:00 DIS Emergency ALVARO LONG DO [facility] ER FALL/NECK PAIN [id number] 04/19/2015 09:13:00 015 23:59:59 CLS Outpatient ZAMZAM LOPEZ LANDSCAPE PHOTOGRAPHER [facility] RAD RT BREAST LUMP [id number] 04/18/2013 08:27:00 013 23:59:59 CLS Outpatient JANETTE BAKER MD [facility] RAD BELLS PALSY [id number] 04/14/2013 15:08:00 013 23:59:59 CLS Outpatient JANETTE BAKER MD [facility] RAD LEFT ARM PARALY SIS,LEFT ARM WEAKNESS [id number] 04/03/2013 20:59:00 013 22:11:00 DIS Emergency MARISOL DAMIAN MD [facility] ER L SIDE FACIAL NUMBNESS [id number] 05/10/2020 08:03:00 Document Registration
--- OUTSIDE RECORDS SUMMARY | 2020-05-10 09:54 | XMS REPORT ---
Author Author Joanna QUINONES Organization [facility] Address [address] [place] [address] Care Team Providers Care Candle Molder Machine Name Role Phone TRAVIS QUINONES Unavailable PROBLEMS Type Condition ICD9-CM Code SDT06-TX Code Onset Dates Condition S tatus SNOMED Code Problem Dysfunctional uterine bleeding N93.8 Active [id number] ALLERGIES No Known Allergies ENCOUNTERS Encounter Location Date Diagnosis [place] [id number] [place] [id number] [address] [place] [address] Apr, Encounter for Depo-Provera c ontraception Z30.42 [place] [address] [place] [address] Apr, Dysfunctional uterine bleedi ng N93.8 [facility] [address] [place] [id number] [address] [place] [address] February, Dysfunctional uterine bleedi ng N93.8 [facility] [address] [place] [id number] [address] [place] [address] February, [facility] [address] [place] [address] Jan, General counseling and advic e for contraceptive management Z30.09 and Encounter for Depo-Provera contraception Z30.42 [place] [address] [place] [id number] [address] [place] [address] Jan, Anxiety F41.9 [place] [address] [place] [id number] [address] [place] [address] Dec, 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 [place] [address] [place] [id number] [address] [place] [address] Jun, Anxiety F41.9 [facility] [address] [id number] [address] [place] [address] May, Anxiety F41.9 [facility] [address] [id number] [address] [place] [address] Apr, Anxiety F41.9 [facility] [address] [id number] [address] [place] [address] Mar, Routine gynecological examin ation V72.31 ; Pap test, as part of routine gynecological examination V76.2 ; Breast cancer screening V76.10 ; Dysmenorrhea 625.3 ; Lump of right breast 611.72 and Family history of ovarian cancer V16.41 [facility] [address] [id number] [address] [place] [address] Jan, [facility] [address] [id number] [address] [place] [address] Jan, [facility] [address] [id number] [address] [place] [address] Sep, [facility] [address] [id number] [address] [place] [address] Sep, [facility] [address] [id number] [address] [place] [address] Dec, [facility] [address] [id number] [address] [place] [address] Dec, [facility] [address] [id number] [address] [place] [address] Apr, [facility] [address] [id number] [address] [place] [phone] Mar, [facility] [address] [id number] [address] [place] [address] Mar, [facility] [address] [id number] [address] [place] [address] Mar, [facility] [address] [id number] [address] [place] [address], [place] [address] Mar, [facility] [address] [id number] [address] [place] [address], [place] [address] 08 Jan, 2013 [facility] [address] [id number] [address] [place] [address], [place] [address] Jan, [facility] [address] [id number] [address] [place] [address], [place] [address] 31 Dec, 2012 [facility] [address] [id number] [address] [place] [address], [place] [address] 29 Dec, 2012 [facility] [address] [id number] [address] [place] [address], [place] [address] 28 Dec, 2012 [facility] [address] [id number] [address] [place] [address], [place] [address] 22 Dec, 2012 [facility] [address] [id number] [address] [place] [address], [place] [address] 20 Dec, 2012 [facility] [address] [id number] [address] [place] [address], [place] [address] 20 Dec, 2012 [facility] [address] [id number] [address] [place] [address], [place] [address] Oct, [facility] [address] [id number] [address] [place] [address], [place] [address] 31 Sep, 2009 [facility] [address] [id number] [address] [place] [address], [place] [address] 23 Sep, 2009 [facility] [address] [id number] [address] [place] [address], [place] [address] 07 Sep, 2009 [facility] [address] [id number] [address] [place] [address], [place] [address] Aug, [facility] [address] [id number] [address] [place] [address], [place] [address] 11 Aug, 2009 [facility] [address] [id number] [address] [place] [address], [place] [address] Aug, [facility] [address] [facility] [id number] [address] [place] [address] Jul, [facility] [address] [facility] [id number] [address] [place] [address] Jul, [facility] [address] [facility] [id number] [address] [place] [address] Jul, [facility] [address] [facility] [id number] [address] [place] [address] Jun, [facility] [address] [facility] [id number] [address] [place] [address] May, [facility] [address] [facility] [id number] [address] [place] [address] Mar, IMMUNIZATIONS Vaccine Route Administration Date Status DEPO PROVERA (150 MG/ML) IM Intramuscular February 17, 2018 Admini stered SOCIAL HISTORY Never Assessed REASON FOR VISIT control consult, patient states she was taking BC pills 3 weeks ago and s topped pills because of her breast implant surgery -- eusebio beverly, patient sta em she tried mirena few years ago and she got it removed because she weas patricioin g heavy bleeding . PLAN OF CARE Activity Details Follow Up 3 Months Reason:contraceptio n f/u Pending Test TEST, URINE (IN HO USE) VITAL SIGNS Height 5'2" in 2018-02-17 Weight 131.0 lbs 2018-02-17 Temperature 98.5 degrees Fahrenheit 2018-02-17 Heart Rate 78 bpm 2018-02-17 Respiratory Rate 18 2018-02-17 BMI 23.96 kg/m2 2018-02-17 Blood pressure systolic 116 mmHg 2018-02-17 Blood pressure diastolic 70 mmHg 2018-02-17 MEDICATIONS Medication Instructions Dosage Frequency Start Date End Date Duration S tatus Depo-Provera 150 MG/ML Intramuscular 12 weeks 1 ml 26 A pr, 2017Dec, 12 weeks Active RESULTS No Results PROCEDURES Procedure Date Ordered Result Body Site URINE TEST February 17, 2018 DEPO PROVERA (150 MG/ML) February 17, 2018 THER/PROPH/DIAG INJ, SC/IM February 17, 2018 INSTRUCTIONS MEDICATIONS ADMINISTERED No Known Medications MEDICAL (GENERAL) HISTORY Type Description Date Surgical History breast implant Hospitalization History UTI. Then got Hypotension. 2013
--- OUTSIDE RECORDS SUMMARY | 2020-05-10 09:54 | XMS REPORT ---
Author Author Joanna QUINONES Organization [facility] Address [address] [place] [address] Care Team Providers Care Tiltrotor Crew Chief Name Role Phone TRAVIS QUINONES Unavailable PROBLEMS Type Condition ICD9-CM Code [id number] Code Onset Dates Condition S tatus SNOMED Code Problem Dysfunctional uterine bleeding N93.8 Active [id number] ALLERGIES No Information ENCOUNTERS Encounter Location Date Diagnosis [place] [address] [place] [id number] [address] [place] [address] Apr, Encounter for Depo-Provera c ontraception Z30.42 [facility] [address] [place] [id number] [address] [place] [address] Apr, Dysfunctional uterine bleedi ng N93.8 [facility] [address] [place] [id number] [address] [place] [address] February, Dysfunctional uterine bleedi ng N93.8 [facility] [address] [place] [id number] [address] [place] [address] February, [facility] [address] [place] [id number] [address] [place] [address] Jan, General counseling and advic e for contraceptive management Z30.09 and Encounter for Depo-Provera contraception Z30.42 [place] [address] [place] [id number] [address] [place] [address] Jan, Anxiety F41.9 [place] [address] [place] [id number] [address] [place] [address] Dec, 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 [place] [address] [place] [id number] [address] [place] [address] Jun, Anxiety F41.9 [facility] [address] [id number] [address] [place] [address] May, Anxiety F41.9 [facility] [address] [id number] [address] [place] [address] Apr, Anxiety F41.9 [facility] [address] [id number] [address] [place] [address] Mar, Routine gynecological examin ation V72.31 ; Pap test, as part of routine gynecological examination V76.2 ; Breast cancer screening V76.10 ; Dysmenorrhea 625.3 ; Lump of right breast 611.72 and Family history of ovarian cancer V16.41 [facility] [address] [id number] [address] [place] [address] Jan, [facility] [address] [id number] [address] [place] [phone] Jan, [facility] [address] [id number] [address] [place] [address] Sep, [facility] [address] [id number] [address] [place] [phone] Sep, [facility] [address] [id number] [address] [place] [phone] Dec, [facility] [address] [id number] [address] [place] [address] Dec, [facility] [address] [id number] [address] [place] [phone] Apr, [facility] [address] [id number] [address] [place] [phone] Mar, [facility] [address] [id number] [address] [place] [phone] Mar, [facility] [address] [id number] [address] [place] [phone] Mar, [facility] [address] [id number] [address] [place] [address], [place] [address] Mar, [facility] [address] [id number] [address] [place] [address], [place] [address] 08 Jan, 2013 [facility] [address] [id number] [address] [place] [address], [place] [address] Jan, [facility] [address] [id number] [address] [place] [address], [place] [address] 31 Dec, 2012 [facility] [address] [id number] [address] [place] [address], [place] [address] 29 Dec, 2012 [facility] [address] [id number] [address] [place] [address], [place] [address] 28 Dec, 2012 [facility] [address] [id number] [address] [place] [address], [place] [address] Dec, [facility] [address] [id number] [address] [place] [address], [place] [address] 20 Dec, 2012 [facility] [address] [id number] [address] [place] [address], [place] [address] Dec, [facility] [address] [id number] [address] [place] [address], [place] [address] Oct, [facility] [address] [id number] [address] [place] [address], [place] [address] 31 Sep, 2009 [facility] [address] [id number] [address] [place] [address], [place] [address] 23 Sep, 2009 [facility] [address] [id number] [address] [place] [address], [place] [address] 07 Sep, 2009 [facility] [address] [id number] [address] [place] [address], [place] [address] Aug, [facility] [address] [id number] [address] [place] [address], [place] [address] 11 Aug, 2009 [facility] [address] [id number] [address] [place], [place] [address] [address] Aug, [facility] [address] [facility] [id number] [address] [place] [phone] Jul, [facility] [address] [id number] [address] [place] [phone] Jul, [facility] [address] [facility] [id number] [address] [place] [phone] Jul, [facility] [address] [facility] [id number] [address] [place] [phone] Jun, [facility] [address] [facility] [id number] [address] [place] [phone] May, [facility] [address] [facility] [id number] [address] [place] [phone] Mar, IMMUNIZATIONS Vaccine Route Administration Date Status DEPO PROVERA (150 MG/ML) IM Intramuscular May 05, 2018 Admini stered SOCIAL HISTORY Never Assessed REASON FOR VISIT Depo Provera injection-awoods PLAN OF CARE VITAL SIGNS MEDICATIONS Unknown Medications RESULTS Name Result Date Reference Range TEST, URINE (IN HOUSE) RESULTS neg Lot # [id number] Control + Exp date 10/2019 PROCEDURES Procedure Date Ordered Result Body Site DEPO PROVERA (150 MG/ML) May 05, 2018 THER/PROPH/DIAG INJ, SC/IM May 05, 2018 URINE TEST May 05, 2018 INSTRUCTIONS MEDICATIONS ADMINISTERED No Known Medications MEDICAL (GENERAL) HISTORY Type Description Date Surgical History breast implant Hospitalization History UTI. Then got Hypotension. 2013
--- OUTSIDE RECORDS SUMMARY | 2020-05-10 09:54 | XMS REPORT ---
Author Author Joanna QUINONES Organization [facility] Address [address] [place] [address] Care Team Providers Care Steam Flattener Name Role Phone TRAVIS QUINONES Unavailable PROBLEMS Type Condition ICD9-CM Code HIW97-IM Code Onset Dates Condition S tatus SNOMED Code Problem Dysfunctional uterine bleeding N93.8 Active 79470484 ALLERGIES No Information ENCOUNTERS Encounter Location Date Diagnosis [place] [address] [place] [id number] [address] [place] [phone] Apr, Encounter for Depo-Provera c ontraception Z30.42 [facility] [address] [id number] [address] [place] [address] Apr, Dysfunctional uterine bleedi ng N93.8 [facility] [address] [place] [id number] [address] [place] [address] February, Dysfunctional uterine bleedi ng N93.8 [facility] [address] [place] [address] [id number] [address] [place] [phone] February, [facility] [address] [place] [id number] [address] [place] [phone] Jan, General counseling and advic e for contraceptive management Z30.09 and Encounter for Depo-Provera contraception Z30.42 [place] [address] [place] [id number] [address] [place] [phone] Jan, Anxiety F41.9 [place] [address] [place] [id number] [address] [place] [address] Dec, 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 [place] [address] [place] [id number] [address] [place] [phone] Jun, Anxiety F41.9 [facility] [address] [id number] [address] [place] [phone] May, Anxiety F41.9 [facility] [address] [id number] [address] [place] [phone] Apr, Anxiety F41.9 [facility] [address] [id number] [address] [place] [address] Mar, Routine gynecological examin ation V72.31 ; Pap test, as part of routine gynecological examination V76.2 ; Breast cancer screening V76.10 ; Dysmenorrhea 625.3 ; Lump of right breast 611.72 and Family history of ovarian cancer V16.41 [facility] [address] [id number] [address] [place] [phone] Jan, [facility] [address] [id number] [address] [place] [phone] Jan, [facility] [address] [id number] [address] [place] [phone] Sep, [facility] [address] [id number] [address] [place] [phone] Sep, [facility] [address] [id number] [address] [place] [phone] Dec, [facility] [address] [id number] [address] [place] [phone] Dec, [facility] [address] [id number] [address] [place] [phone] Apr, [facility] [address] [id number] [address] [place] [phone] Mar, [facility] [address] [id number] [address] [place] [phone] Mar, [facility] [address] [id number] [address] [place] [phone] Mar, [facility] [address] [id number] [address] [place] [address], [place] [address] Mar, [facility] [address] [id number] [address] [place] [address], [place] [address] 08 Jan, 2013 [facility] [address] [id number] [address] [place] [address], [place] [address] Jan, [facility] [address] [id number] [address] [place] [address], [place] [address] 31 Dec, 2012 [facility] [address] [id number] [address] [place] [address], [place] [address] 29 Dec, 2012 [facility] [address] [id number] [address] [place] [address], [place] [address] 28 Dec, 2012 [facility] [address] [id number] [address] [place] [address], [place] [address] Dec, [facility] [address] [id number] [address] [place] [address], [place] [address] 20 Dec, 2012 [facility] [address] [id number] [address] [place] [address], [place] [address] Dec, [facility] [address] [id number] [address] [place] [address], [place] [address] Oct, [facility] [address] [id number] [address] [place] [address], [place] [address] 31 Sep, 2009 [facility] [address] [id number] [address] [place] [address], [place] [address] 23 Sep, 2009 [facility] [address] [id number] [address] [place] [address], [place] [address] 07 Sep, 2009 [facility] [address] [id number] [address] [place] [address], [place] [address] Aug, [facility] [address] [id number] [address] [place] [address], [place] [address] 11 Aug, 2009 [facility] [address] [id number] [address] [place] [address] [address] Aug, [facility] [address] [id number] [address] [place] [phone] Jul, [facility] [address] [id number] [address] [place] [phone] Jul, [facility] [address] [facility] [id number] [address] [place] [address] Jul, [facility] [address] [facility] [id number] [address] [place] [phone] Jun, [facility] [address] [facility] [id number] [address] [place] [phone] May, [facility] [address] [facility] [id number] [address] [place] [phone] Mar, IMMUNIZATIONS No Known Immunizations SOCIAL HISTORY Never Assessed REASON FOR VISIT heavy bleeding after DEPO PLAN OF CARE VITAL SIGNS MEDICATIONS Unknown Medications RESULTS No Results PROCEDURES No Known procedures INSTRUCTIONS MEDICATIONS ADMINISTERED No Known Medications MEDICAL (GENERAL) HISTORY Type Description Date Surgical History breast implant Hospitalization History UTI. Then got Hypotension. 2013
--- OUTSIDE RECORDS SUMMARY | 2020-05-10 09:54 | XMS REPORT ---
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.8 Active [id number] ALLERGIES No Known Allergies ENCOUNTERS Encounter Location Date Diagnosis [place] [address] [place] [id number] [address] [place] [address] Apr, Encounter for Depo-Provera c ontraception Z30.42 [place] [address] [place] [address] Apr, Dysfunctional uterine bleedi ng N93.8 [facility] [address] [place] [id number] [address] [place] [address] February, Dysfunctional uterine bleedi ng N93.8 [facility] [address] [place] [id number] [address] [place] [address] February, [facility] [address] [place] [address] Jan, General counseling and advic e for contraceptive management Z30.09 and Encounter for Depo-Provera contraception Z30.42 [place] [address] [place] [id number] [address] [place] [address] Jan, Anxiety F41.9 [place] [address] [place] [id number] [address] [place] [address] Dec, 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 [place] [address] [place] [id number] [address] [place] [address] Jun, Anxiety F41.9 [facility] [address] [id number] [address] [place] [address] May, Anxiety F41.9 [facility] [address] [id number] [address] [place] [address] Apr, Anxiety F41.9 [facility] [address] [id number] [address] [place] [address] Mar, Routine gynecological examin ation V72.31 ; Pap test, as part of routine gynecological examination V76.2 ; Breast cancer screening V76.10 ; Dysmenorrhea 625.3 ; Lump of right breast 611.72 and Family history of ovarian cancer V16.41 [facility] [address] [id number] [address] [place] [address] Jan, [facility] [address] [id number] [address] [place] [phone] Jan, [facility] [address] [id number] [address] [place] [phone] Sep, [facility] [address] [id number] [address] [place] [phone] Sep, [facility] [address] [id number] [address] [place] [phone] Dec, [facility] [address] [id number] [address] [place] [phone] Dec, [facility] [address] [id number] [address] [place] [phone] Apr, [facility] [address] [id number] [address] [place] [phone] Mar, [facility] [address] [id number] [address] [place] [phone] Mar, [facility] [address] [id number] [address] [place] [phone] Mar, [facility] [address] [id number] [address] [place] [address], [place] [address] Mar, [facility] [address] [id number] [address] [place] [address], [place] [address] 08 Jan, 2013 [facility] [address] [id number] [address] [place] [address], [place] [address] Jan, [facility] [address] [id number] [address] [place] [address], [place] [address] 31 Dec, 2012 [facility] [address] [id number] [address] [place] [address], [place] [address] 29 Dec, 2012 [facility] [address] [id number] [address] [place] [address], [place] [address] 28 Dec, 2012 [facility] [address] [id number] [address] [place] [address], [place] [address] 22 Dec, 2012 [facility] [address] [id number] [address] [place] [address], [place] [address] 20 Dec, 2012 [facility] [address] [id number] [address] [place] [address], [place] [address] 20 Dec, 2012 [facility] [address] [id number] [address] [place] [address], [place] [address] Oct, [facility] [address] [id number] [address] [place] [address], [place] [address] 31 Sep, 2009 [facility] [address] [id number] [address] [place] [address], [place] [address] 23 Sep, 2009 [facility] [address] [id number] [address] [place] [address], [place] [address] 07 Sep, 2009 [facility] [address] [id number] [address] [place] [address], [place] [address] Aug, [facility] [address] [id number] [address] [place] [address], [place] [address] 11 Aug, 2009 [facility] [address] [id number] [address] [place] [address], [place] [address] Aug, [facility] [address] [facility] [id number] [address] [place] [phone] Jul, [facility] [address] [id number] [address] [place] [phone] Jul, [facility] [address] [facility] [id number] [address] [place] [phone] Jul, [facility] [address] [facility] [id number] [address] [place] [phone] Jun, [facility] [address] [facility] [id number] [address] [place] [phone] May, [facility] [address] [facility] [id number] [address] [place] [phone] Mar, IMMUNIZATIONS No Known Immunizations SOCIAL HISTORY Never Assessed REASON FOR VISIT Depo F/U, states she is having heavy bleeding using 4 -5 tampons a day with bloo d clots, states everything started after getting the DEPO in [place] PLAN OF CARE Activity Details Follow Up 2 Weeks Reason:DUB Pending Test CMP Pending Test CBC Pending Test ESTRADIOL Pending Test LH Pending Test PROLACTIN Pending Test TSH Pending Test Ultrasound : Pelvic, COMPLET E (REFLEX CPT-46944) VITAL SIGNS Height 5'2" in 2018-03-24 Weight 133.6 lbs 2018-03-24 Temperature 98.0 degrees Fahrenheit 2018-03-24 Heart Rate 70 bpm 2018-03-24 Respiratory Rate 18 2018-03-24 BMI 24.43 kg/m2 2018-03-24 Blood pressure systolic 112 mmHg 2018-03-24 Blood pressure diastolic 68 mmHg 2018-03-24 MEDICATIONS Medication Instructions Dosage Frequency Start Date End Date Duration S tatus Ibuprofen 800 MG Orally Three times a day 1 tablet with food or milk as needed 8h Mar, 10 days Active Depo-Provera 150 MG/ML Intramuscular 12 weeks 1 ml 26 A pr, 2017Dec, 12 weeks Active Norethindrone Acetate 5 mg Orally Once a day 1 tablet 24h February, Mar, 10 days Active RESULTS Name Result Date Reference Range HEMOGLOBIN (IN HOUSE) 2018-03-24 HEMOGLOBIN 12.5 11.5 - 16 gm/dL Lot # [id number] Exp date 08/02/2019 PROCEDURES Procedure Date Ordered Result Body Site COMPLETE CBC W/AUTO DIFF WBC March 24, 2018 COMPREHEN METABOLIC PANEL March 24, 2018 HEMOGLOBIN March 24, 2018 GONADOTROPIN (LH) March 24, 2018 ASSAY THYROID STIM HORMONE March 24, 2018 ASSAY OF ESTRADIOL March 24, 2018 ASSAY OF PROLACTIN March 24, 2018 INSTRUCTIONS MEDICATIONS ADMINISTERED No Known Medications MEDICAL (GENERAL) HISTORY Type Description Date Surgical History breast implant Hospitalization History UTI. Then got Hypotension. 2013
--- NOTE | 2020-05-10 10:20 | NUR ---
Dr Cat at bedside. SVE by No new orders.
--- NOTE | 2020-05-10 10:30 | History & Physical-OB ---
OB - Chief Complaint & HPI Date/Time Date of Admission: Date of Admission: May 10, 2020 at 07:55 Date seen by a Provider: May 10, 2020 Time Seen by a Provider: 10:26 Chief Complaint/History OB-Reason for Admission/Chief: Rupture of Membranes Hx : 5 Hx Para: 3 Expected Date of Delivery: Jun 06, 2020 Gestational Age in Weeks: 36 Gestational Age in Days: 1 History of Labs O+, Ab neg Rub Imm GC/Chyl neg HIV/HepB/RPR NR Normal 1 hr GTT Repeat RPR NR GBS Unknown Allergies and Home Medications Allergies Coded Allergies: NKANo Known Allergies (Verified Allergy, Unknown, 03/26/07) Home Medications Lorazepam 0.5 Mg Tablet, 0.5 MG PO Q6H, (Reported) Metaxalone 800 Mg Tablet, 800 MG PO Q6H PRN for NECK SPASM/PAIN Prescribed by: ALVARO LONG on 07/06/162018 Naproxen Sodium 550 Mg Tablet, 550 MG PO Q12H PRN for PAIN Prescribed by: ALVARO LONG on 07/06/162018 Paroxetine HCl 30 Mg Tablet, 30 MG PO DAILY, (Reported) Patient Home Medication List Home Medication List Reviewed: Yes OB - History Hx of Present Care: Yes Ultrasounds: Normal mid trimester US Obstetrical Complications: None Medical Complications: None Obstetrical History Hx : 5 Hx Para: 3 Hx # Term Pregnancies: 3 Number of Living Children: 3 Hx Termination: Yes Hx Total # of Abortions (Spona: 1 Hx Multiple Gestation: No Hx Stillbirth: No Hx Complication: No Hx Induced Hypertens: No Hx Maternal Gestational Diabet: No Delivery History Hx Dystocia: No Hx Large For Gestational Age I: No Hx Small for Gestational Age I: No Hx Section: No Hx Vaginal Delivery Post C-Sec: No Hx Blood Disorders: No Adverse Rxn to Tranfusion: No Patient Past Medical History None Social History/Family History HIV/AIDS: No Recent Infectious Disease Expo: No Sexually Transmitted Disease: No Alcohol Use: Denies Use Recreational Drug Use: No Smoking Cessation: Never smoker Immunizations Hepatitis A: Yes Hepatitis B: Yes Tetanus Booster (TDap): Less than 5yrs Date of Influenza Vaccine: Aug 12, 2012 Rubella: immune RPR/VDRL: Negative GBS Status: Unknown HBsAG: Negative OB - Admission Exam Physical Exam Vitals: Vital Signs 05/10/20 09:45 Pulse 83 B/P (MAP) 103/71 (82) O2 Delivery Room Air HEENT: NCAT Heart: Rhythm Normal Lungs: Clear Abdomen: Gravid Cervical Dilatation: 2cm Effacement: 50% Station: -2 Membranes: Ruptured Amniotic Fluid: Clear Heart Rate: 140's Accelerations: Accelerations Present Decelerations: No Decelerations Contractions on Admission: 6-10 Minutes Apart Intensity: Moderate Labs Laboratory Tests Test 05/10/20 08:00 Range/Units White Blood Count 9.2 4.3-11.0 10^3/uL Red Blood Count 3.95 L 4.35-5.85 10^6/uL Hemoglobin 12.4 11.5-16.0 G/DL Hematocrit 36 35-52 % Mean Corpuscular Volume 91 80-99 FL Mean Corpuscular Hemoglobin 31 25-34 PG Mean Corpuscular Hemoglobin Concent 35 32-36 G/DL Red Cell Distribution Width 14.1 10.0-14.5 % Platelet Count 245 130-400 10^3/uL Mean Platelet Volume 10.2 7.4-10.4 FL Neutrophils (%) (Auto) 71 42-75 % Lymphocytes (%) (Auto) 19 12-44 % Monocytes (%) (Auto) 9 0-12 % Eosinophils (%) (Auto) 1 0-10 % Basophils (%) (Auto) 0 0-10 % Neutrophils # (Auto) 6.5 1.8-7.8 X 10^3 Lymphocytes # (Auto) 1.8 1.0-4.0 X 10^3 Monocytes # (Auto) 0.8 0.0-1.0 X 10^3 Eosinophils # (Auto) 0.1 0.0-0.3 10^3/uL Basophils # (Auto) 0.0 0.0-0.1 10^3/uL OB - Assessment/Plan/Diagnosis Assessment Assessment: rupture of membranes Admission Dx SROM 36 week gestation Third trimester Admission Status: Inpatient Order (span 2 midnights) Reason for Inpatient Admission: Labor Plan Other Plan 34 yo @ 36.1 SROM clear at home Plan - GBS Unknown: Ampicillin Started - Augment labor with Pitocin per protocol Copy Copies To 1: BJ GUILLERMO MD, HOLLY R MD May 10, 2020 10:30
--- NOTE | 2020-05-10 11:56 | NUR ---
This RN contacts Dr Cat with updated pt report. Pitocin rate has reached 20mu/hr. UC 2-4 min. Pt still not very uncomfortable, resting well through UC. FHT category 1. Dr Cat states that RN may continue to increase pitocin past 20, not exceeding 40.
[2020-05-10] MEDS ORDERED: AMPICILLIN FOR IV USE 1,000 MG in WATER (STERILE) FOR INJECTION 7.4 ML IV SCH (13:15)
--- NOTE | 2020-05-10 13:53 | NUR ---
This Rn updated Dr Cat on pt report. Current SVE 2-3cm, thick, -2. Pitocin rate currently at 24, UC q 2 min. Pt rating pain 7/10, remains in very good control, breathing well through UC. Currently standing/swaying at bedside and/or sitting on exercise ball. FHT category 1, reactive, no variables. No new orders at this time. Dr Cat made RN aware that she is at home which will take her approx 30 min to get to hospital.
[2020-05-10] MEDS ORDERED: CATHETER FLUSH 10 ML SYR IV SCH ×2 (14:00→22:00)
--- NOTE | 2020-05-10 15:30 | NUR ---
RN updates Dr Cat at this time on pt report. SVE /-1 with bloody show. Pt states she started feeling more pressure almost like she needed to push. FHT good, had some variables with UC- pt was in poor position basically laying on her back slumped in bed. Pt is now sitting high fowlers. Still rating pain 7, remains in good control. Pitocin rate on 24. UC [address] Cat acknowledges report, no new orders, let Dr know when she needs to come to hospital (will take her 25 min from home).
--- NOTE | 2020-05-10 16:38 | NUR ---
This RN updates Dr Cat on pt status. /-1, acting more uncomfortable, still in control. UC q2m, variables and/or earlies with each UC now regardless of position. Dr Cat states she is on her way as of 1629
--- NOTE | 2020-05-10 17:15 | Labor Progress Note ---
Labor Progress Note Labor Progress Note Date Seen by Provider: May 10, 2020 Time Seen by Provider: 17:14 Subjective: Pt denies complaints. Feeling more pressure and pain. Objective: Cervical exam: /- Consistency: soft heart tones: 140 with variable and early decelerations Tocometer: q2-3 mins Assessment/Plan: Joanna Culp is a (34 /Para 5 / 3,Gestational Age (wks)36.1 here for labor after SROM at home. CEFM/TOCO Augmenting labor with pitocin Anesthesia: Natural Anticipate vaginal delivery. Vitals - Labs Vital Signs - I&O Vital Signs Date Time Temp Pulse Resp B/P (MAP) Pulse Ox O2 Delivery O2 Flow Rate FiO2 05/10/20 15:30 74 115/66 (82) Room Air 05/10/20 15:15 71 18 110/63 (79) Room Air 05/10/20 15:00 73 107/67 (80) Room Air 05/10/20 14:45 67 96/54 (68) Room Air 05/10/20 14:30 36.5 63 94/51 (65) Room Air 05/10/20 14:15 71 87/52 (64) Room Air 05/10/20 14:00 71 114/65 (81) Room Air 05/10/20 13:45 65 91/55 (67) Room Air 05/10/20 13:30 36.8 Room Air 05/10/20 13:15 83 103/62 (76) Room Air 05/10/20 13:00 83 100/65 (77) Room Air 05/10/20 12:45 66 103/59 (74) Room Air 05/10/20 12:30 69 18 89/55 (66) 100 Room Air 05/10/20 12:15 68 91/55 (67) Room Air 05/10/20 12:00 36.7 65 114/64 (81) Room Air 05/10/20 11:45 67 98/59 (72) Room Air 05/10/20 11:30 62 94/55 (68) Room Air 05/10/20 11:15 67 98/55 (69) Room Air 05/10/20 11:00 74 100/59 (73) Room Air 05/10/20 10:45 76 100/61 (74) Room Air 05/10/20 10:30 75 93/57 (69) Room Air 05/10/20 10:15 69 16 101/64 (76) Room Air 05/10/20 10:00 Room Air 05/10/20 09:45 83 103/71 (82) Room Air 05/10/20 09:30 65 127/75 (92) Room Air 05/10/20 09:15 75 112/66 (81) Room Air 05/10/20 09:00 73 107/67 (80) Room Air 05/10/20 08:45 81 114/73 (87) Room Air 05/10/20 08:30 36.7 66 16 99 Room Air 05/10/20 08:30 36.7 66 113/69 (84) Room Air 05/10/20 07:40 36.8 72 16 120/72 (88) 99 Room Air Labs Laboratory Tests 05/10/20 08:00: White Blood Count 9.2, Red Blood Count 3.95L, Hemoglobin 12.4, Hematocrit 36, Mean Corpuscular Volume 91, Mean Corpuscular Hemoglobin 31, Mean Corpuscular Hemoglobin Concent 35, Red Cell Distribution Width 14.1, Platelet Count 245, Mean Platelet Volume 10.2, Neutrophils (%) (Auto) 71, Lymphocytes (%) (Auto) 19, Monocytes (%) (Auto) 9, Eosinophils (%) (Auto) 1, Basophils (%) (Auto) 0, Neutrophils # (Auto) 6.5, Lymphocytes # (Auto) 1.8, Monocytes # (Auto) 0.8, Eosinophils # (Auto) 0.1, Basophils # (Auto) 0.0 BJ GUILLERMO MD May 10, 2020 17:15
--- NOTE | 2020-05-10 17:25 | NUR ---
Pt CO needing to push. Dr Cat at bedside. Room setup for delivery at this time. Denise guzman at bedside for infant assessment, RT called to delivery, Peds OC called to delivery.
[2020-05-10] MEDS ORDERED: BENZOCAINE/MENTHOL (DERMOPLAST) 60 ML CAN TP PRN (18:00)
[2020-05-10] MEDS ORDERED: WITCH HAZEL(TUCKS) 40 EA JAR TOP PRN (18:00)
[2020-05-10] MEDS ORDERED: IBUPROFEN 600 MG (MOTRIN) TAB PO ONE (18:01)
[2020-05-10] MEDS ORDERED: ACETAMINOPHEN 500 MG TAB (TYLENOL) ONE (18:01)
--- NOTE | 2020-05-10 18:02 | OB Labor & Delivery Record ---
Vag Delivery Note Vag Delivery Note Date of Delivery: 05/10/20 Preoperative Diagnosis: Joanna Culp is a (34 /Para 5 / 3, Gestational Age (wks)36.1 wga here for labor after SROM at home Postoperative Diagnosis: Same Surgeon: BJ GUILLERMO Linen Manager: None Anesthesia: None Delivery Type: @ 7432 Findings: Viable Female , apgars 7/9, weight 5#14, 2670 grams Lacerations: None Intact placenta with 3 vessel cord. No nuchal cord, body cord or shoulder dystocia Estimated Blood Loss: 150 ml Complications: None Condition: Stable Description of Procedure: The patient is a 34 year old female who presented in labor after SROM at home. She was admitted and informed consent was obtained. Her labor course was remarkable for unknown GBS status. She progressed to complete dilatation and began to push. She was then set up for delivery. The infant's head was delivered atraumatically in the DENA position. The shoulders and remainder of the 's body were then delivered without difficulty. Upon delivery, the head was held below the level of the perineum and the mouth and nares were bulb suctioned. The cord was doubly clamped and cut after 3 min delay and the was attended to on maternal abdomen by pediatric nurse. An intact placenta with 3-vessel cord delivered via Jamel and there was found to be minimal bleeding.~ Vigorous fundal massage was performed and the fundus was found to be firm. IV oxytocin was given. Examination of the vagina and perineum revealed no lacerations that require repair. Following the repair, sponge, instrument and needle counts were correct. Mom and baby were both in stable condition in the labor suite. Vitals - Labs Vital Signs - I&O Vital Signs Date Time Temp Pulse Resp B/P (MAP) Pulse Ox O2 Delivery O2 Flow Rate FiO2 05/10/20 15:30 74 115/66 (82) Room Air 05/10/20 15:15 71 18 110/63 (79) Room Air 05/10/20 15:00 73 107/67 (80) Room Air 05/10/20 14:45 67 96/54 (68) Room Air 05/10/20 14:30 36.5 63 94/51 (65) Room Air 05/10/20 14:15 71 87/52 (64) Room Air 05/10/20 14:00 71 114/65 (81) Room Air 05/10/20 13:45 65 91/55 (67) Room Air 05/10/20 13:30 36.8 Room Air 05/10/20 13:15 83 103/62 (76) Room Air 05/10/20 13:00 83 100/65 (77) Room Air 05/10/20 12:45 66 103/59 (74) Room Air 05/10/20 12:30 69 18 89/55 (66) 100 Room Air 05/10/20 12:15 68 91/55 (67) Room Air 05/10/20 12:00 36.7 65 114/64 (81) Room Air 05/10/20 11:45 67 98/59 (72) Room Air 05/10/20 11:30 62 94/55 (68) Room Air 05/10/20 11:15 67 98/55 (69) Room Air 05/10/20 11:00 74 100/59 (73) Room Air 05/10/20 10:45 76 100/61 (74) Room Air 05/10/20 10:30 75 93/57 (69) Room Air 05/10/20 10:15 69 16 101/64 (76) Room Air 05/10/20 10:00 Room Air 05/10/20 09:45 83 103/71 (82) Room Air 05/10/20 09:30 65 127/75 (92) Room Air 05/10/20 09:15 75 112/66 (81) Room Air 05/10/20 09:00 73 107/67 (80) Room Air 05/10/20 08:45 81 114/73 (87) Room Air 05/10/20 08:30 36.7 66 16 99 Room Air 05/10/20 08:30 36.7 66 113/69 (84) Room Air 05/10/20 07:40 36.8 72 16 120/72 (88) 99 Room Air Labs Laboratory Tests 05/10/20 08:00: White Blood Count 9.2, Red Blood Count 3.95L, Hemoglobin 12.4, Hematocrit 36, Mean Corpuscular Volume 91, Mean Corpuscular Hemoglobin 31, Mean Corpuscular Hemoglobin Concent 35, Red Cell Distribution Width 14.1, Platelet Count 245, Mean Platelet Volume 10.2, Neutrophils (%) (Auto) 71, Lymphocytes (%) (Auto) 19, Monocytes (%) (Auto) 9, Eosinophils (%) (Auto) 1, Basophils (%) (Auto) 0, Neutrophils # (Auto) 6.5, Lymphocytes # (Auto) 1.8, Monocytes # (Auto) 0.8, Eosinophils # (Auto) 0.1, Basophils # (Auto) 0.0 BJ GUILLERMO MD May 10, 2020 18:02
[2020-05-10] MEDS: IBUPROFEN 600 MG (MOTRIN) TAB PO SCH (18:03)
[2020-05-10] MEDS: ACETAMINOPHEN 500 MG TAB (TYLENOL) PO SCH (18:04)
--- NOTE | 2020-05-10 19:20 | NUR ---
1735: Recovery period begins at this time. fundus firm, midline, 1 below umbilicus, scant bleeding. Pt holding skin to skin. SO at bedside. Call light within reach. VSS. 1753: fundus firm, midline, 1 below umbilicus, scant bleeding. SO at bedside. Call light within reach. VSS. 1805: fundus firm, midline, level with umbilicus, light bleeding. SO at bedside. Call light within reach. VSS. 1820: fundus firm, midline, level with umbilicus, light bleeding. SO at bedside. Call light within reach. VSS. Infant in nursery. 183: fundus firm, midline, level with umbilicus, light bleeding. SO at bedside. Call light within reach. VSS. in nursery. 1850: fundus firm, midline, level with umbilicus, light bleeding. Call light within reach. VSS. Infant in nursery. SO to nursery to see baby with dr bourne. pt eating regular diet. 1904: fundus firm, midline, level with umbilicus, light bleeding. Call light within reach. VSS. in nursery. SO to nursery to see baby. 0: fundus firm, midline, level with umbilicus, light bleeding. Call light within reach. VSS. in nursery. SO to nursery to see baby. This RN hands off to next shift. Recovery period ends at 193.
--- NOTE | 2020-05-10 19:30 | NUR ---
pt report given to noelle allison at this time.
--- NOTE | 2020-05-10 19:50 | NUR ---
Patient assisted up to bathroom. Ambulated without difficulty. Positive void noted. Shower set up for patient at this time.
--- NOTE | 2020-05-10 20:15 | NUR ---
Patient transferred to PP room 310 via wheelchair, accompanied by staff and . Patient oriented to room, call light, bed controls, thermostat, and dietary menu. PP folder given and explained. No other questions or concerns voiced at this time.
[2020-05-10] MEDS: DOCUSATE SODIUM 100 MG (COLACE) CAP PO SCH (20:32)
[2020-05-10] MEDS ORDERED: ACETAMINOPHEN 500 MG TAB (TYLENOL) PO SCH (21:00)
--- NOTE | 2020-05-10 21:30 | NUR ---
Patient and to nursery to see baby.
[2020-05-11 00:15] VITALS: BP 95/57
[2020-05-11] MEDS: IBUPROFEN 600 MG (MOTRIN) TAB PO SCH ×4 (00:17→18:35)
[2020-05-11] MEDS: ACETAMINOPHEN 500 MG TAB (TYLENOL) PO SCH ×4 (00:17→18:35)
[2020-05-11 04:10] VITALS: BP 100/62
[2020-05-11 05:44] LABS: BASOPHILS % (AUTO) 0 % (0-10); EOSINOPHILS % (AUTO) 0 % (0-10); HEMATOCRIT 33 % (35-52); HEMOGLOBIN 11.2 G/DL (11.5-16.0); LYMPHOCYTES # (AUTO) 2.6 X 10^3 (1.0-4.0); LYMPHOCYTES % (AUTO) 17 % (12-44); MEAN CORPUSCULAR HEMOGLOBIN 32 PG (25-34); MEAN CORPUSCULAR HGB CONC 35 G/DL (32-36); MEAN CORPUSCULAR VOLUME 91 FL (80-99); MEAN PLATELET VOLUME 10.3 FL (7.4-10.4); MONOCYTES # (AUTO) 1.1 X 10^3 (0.0-1.0); MONOCYTES % (AUTO) 7 % (0-12); NEUTROPHILS # (AUTO) 12.1 X 10^3 (1.8-7.8); NEUTROPHILS % (AUTO) 76 % (42-75); PLATELET COUNT 219 10^3/uL (130-400); WHITE BLOOD COUNT 15.9 10^3/uL (4.3-11.0)
[2020-05-11 06:32] LABS: ATYPICAL LYMPHOCYTES 1 %; EOSINOPHILS % (MANUAL) 1 %; HYPOCHROMASIA SLIGHT; LYMPHOCYTES % (MANUAL) 19 %; METAMYELOCYTES % 2 %; MONOCYTES % (MANUAL) 7 %; MYELOCYTES % 1 %; NEUTROPHILS % (MANUAL) 69 %
--- NOTE | 2020-05-11 07:20 | Progress Note ---
Subjective Subjective/Events-last exam Patient does not voice any complaints this morning. She has been cramping some but she knows this is expected after delivery. She has been walking around and tolerating regular diet. Objective Exam Last Set of Vital Signs Vital Signs Date Time Temp Pulse Resp B/P (MAP) Pulse Ox O2 Delivery O2 Flow Rate FiO2 05/11/20 04:10 36.9 68 16 100/62 (75) 98 Room Air Capillary Refill : Less Than 3 Seconds I&O Intake and Output 05/11/20 00:00 Intake Total 2374 ml Balance 2374 ml Intake IV Total 2374 ml Daily Weight Change No General: Oriented X3 Lungs: Clear to Auscultation Heart: Regular Rate Abdomen: Soft (With uterus firm and 2 fingers above the umbilicus) Results/Procedures Lab Laboratory Tests 05/10/20 08:00: White Blood Count 9.2, Red Blood Count 3.95L, Hemoglobin 12.4, Hematocrit 36, Mean Corpuscular Volume 91, Mean Corpuscular Hemoglobin 31, Mean Corpuscular Hemoglobin Concent 35, Red Cell Distribution Width 14.1, Platelet Count 245, Mean Platelet Volume 10.2, Neutrophils (%) (Auto) 71, Lymphocytes (%) (Auto) 19, Monocytes (%) (Auto) 9, Eosinophils (%) (Auto) 1, Basophils (%) (Auto) 0, Neutrophils # (Auto) 6.5, Lymphocytes # (Auto) 1.8, Monocytes # (Auto) 0.8, Eosinophils # (Auto) 0.1, Basophils # (Auto) 0.0 05/11/20 05:28: White Blood Count 15.9H, Red Blood Count 3.56L, Hemoglobin 11.2L, Hematocrit 33L , Mean Corpuscular Volume 91, Mean Corpuscular Hemoglobin 32, Mean Corpuscular Hemoglobin Concent 35, Red Cell Distribution Width 14.0, Platelet Count 219, Mean Platelet Volume 10.3, Neutrophils (%) (Auto) 76H, Lymphocytes (%) (Auto) 17, Monocytes (%) (Auto) 7, Eosinophils (%) (Auto) 0, Basophils (%) (Auto) 0, Neutrophils # (Auto) 12.1H, Lymphocytes # (Auto) 2.6, Monocytes # (Auto) 1.1H, Eosinophils # (Auto) 0.0, Basophils # (Auto) 0.0, Neutrophils % (Manual) 69, Lymphocytes % (Manual) 19, Monocytes % (Manual) 7, Eosinophils % (Manual) 1, Metamyelocytes % 2, Myelocytes % 1, Atypical Lymphocytes 1, Hypochromasia SLIGHT Assessment/Plan Assessment/Plan Admission Dx 1. Status post spontaneous vaginal delivery at 36 weeks gestation Admission Status: Inpatient Order (span 2 midnights) Assessment & Plan 1. Status post spontaneous vaginal delivery at 36 weeks gestation -Continue routine care orders -I suspect she'll go home in the morning of May 12, 2020- Clinical Quality Measures DVT/VTE Risk/Contraindication: Risk Factor Score Per Nursin RFS Level Per Nursing on Admit: 1=Low/No VTE PPX EDITH SOLIS MD May 11, 2020 07:20
[2020-05-11 08:00] VITALS: BP 99/60
--- NOTE | 2020-05-11 08:00 | NUR ---
A.M. ASSESSMENT COMPLETED. VSS. C/O CRAMPING. WARM BLANKET TO ABDOMEN.
[2020-05-11] MEDS: DOCUSATE SODIUM 100 MG (COLACE) CAP PO SCH ×2 (08:14→19:55)
--- NOTE | 2020-05-11 09:00 | NUR ---
PARENTS TO NURSERY TO SEE .
--- NOTE | 2020-05-11 11:00 | NUR ---
AMBULATING IN HALLWAY WITHOUT PROBLEMS.
--- NOTE | 2020-05-11 12:18 | NUR ---
RESTING IN BED. STATES FEELING BETTER.
[2020-05-11 12:20] VITALS: BP 95/63
--- NOTE | 2020-05-11 14:30 | NUR ---
HAD PT START ON CERTIFICATE.
[2020-05-11 16:45] VITALS: BP 89/59
--- NOTE | 2020-05-11 16:45 | NUR ---
VSS. FREQUENT VISITS TO THE NURSERY. RESTS IN BED IN BETWEEN.
--- NOTE | 2020-05-11 18:30 | NUR ---
PT IN NURSERY. MEDS GIVEN.
[2020-05-11 19:55] VITALS: BP 98/59
--- NOTE | 2020-05-11 21:10 | NUR ---
Parents to nursery to see baby.
--- NOTE | 2020-05-11 22:50 | NUR ---
Parents to nursery to see baby.
--- NOTE | 2020-05-11 23:39 | NUR ---
Patient getting ready for bed. RN informed her that her pain medications are due in an hour. Patient requests RN to wait to give pain medications when vitals are due at 0200 so she can rest. RN instructed patient to push call light if she wakes up in pain before 0200.
[2020-05-12 01:55] VITALS: BP 92/60
[2020-05-12] MEDS: IBUPROFEN 600 MG (MOTRIN) TAB PO SCH ×2 (01:55→07:54)
[2020-05-12] MEDS: ACETAMINOPHEN 500 MG TAB (TYLENOL) PO SCH ×2 (01:55→07:54)
--- NOTE | 2020-05-12 06:33 | Discharge Inst-Women's Service ---
Discharge Inst-Women's Serv Depart Medication/Instructions New, Converted or Re-Newed RX: Other Instructions Continue with vitamin as well daily for the next month Problems Reviewed?: Yes Consults/Follow Up Additional Follow Up: Yes (Follow-up with Dr. Cat in 6 weeks) Activity NO SMOKING: NO SMOKING Nothing Inside Vagina: No [place] (For 6 weeks) Diet Discharge Diet: Regular Diet Return to The Hospital For: As below Symptoms to Report to : Bleeding Excessive, Fever Over 101 Degrees F, Vag inal Discharge Foul For Any Problems or Questions: Contact Your Physician EDITH SLOIS MD May 12, 2020 06:33
--- NOTE | 2020-05-12 06:35 | Discharge Summary ---
Diagnosis/Chief Complaint Date of Admission May 10, 2020 at 07:55 Date of Discharge May 12, 2020 Admission Diagnosis Admission Diagnosis 1. Intrauterine at 36 weeks gestation Discharge Diagnosis 1. Intrauterine at 36 weeks gestationdelivered vaginally Chief Complaint/HPI Chief Complaint/HPI 34-year-old 5 now term 4 who initially presented to women's services on May 10, 2020 with spontaneous rupture of membranes. Patient was at 36 weeks 1 day gestation upon presentation. Her GBS status was unknown. Discharge Summary-OBS Procedures 1. Spontaneous vaginal delivery Discharge Physical Examination Allergies: Coded Allergies: NKANo Known Allergies (Verified Allergy, Unknown, 03/26/07) Vitals & I&Os Vital Sign - Last 12Hours Date Time Temp Pulse Resp B/P (MAP) Pulse Ox O2 Delivery O2 Flow Rate FiO2 05/12/20 01:55 36.4 70 16 92/60 (71) 98 Room Air General Appearance: No Acute Distress Respiratory: Clear to Auscultation Cardiovascular: Regular Rate Abdominal: Soft (with uterus firm) Skin: No Rashes Neuro: Normal Speech Psych/Mental Status: Mental Status NL Hospital Course Was the Problem List Reviewed?: Yes Following admission she underwent labor and delivery course. Ultimately she went on to deliver a female with Apgars of 8 at 1 minute and 9 at 5 minutes. Following delivery patient underwent routine care orders. She was noted to tolerate regular diet and had no problems with shortness of liza ath or leg pain. Her hemoglobin on admission was noted to be 12.4 and the day after delivery 11.2. Patient had no significant issues during the course of care other than occasional uterine cramping. Cramping was controlled with ibuprofen. All questions were answered and they were felt ready for dismissal during the morning of May 12, 2020. Discharge Instructions to patient/family Please see electronic discharge instructions given to patient. Discharge Medications Reviewed and agree with Discharge Medication list on patient's Discharge Instruction sheet Clinical Quality Measures DVT/VTE Risk/Contraindication: Risk Factor Score Per Nursin RFS Level Per Nursing on Admit: 1=Low/No VTE PPX EDITH SOLIS MD May 12, 2020 06:35
[2020-05-12 07:55] VITALS: BP 101/72
--- NOTE | 2020-05-12 08:00 | NUR ---
To room for assessment, AM meds. Discharge instructions given with copy provided to pt. Pt notified of follow up appointment. Pt verbalizes understanding of instructions and signs to verify. No questions voiced. SCIENTIFIC DATABASE CURATOR to room at this time to discuss infant cares with pt.
--- NOTE | 2020-05-12 08:15 | NUR ---
Pt ambulates off unit to private vehicle accompanied by S.O. and all personal belongings. Pt tearful d/t transferred to NICU, but no other s/s of distress noted.
== END 2020-05-12 08:15 | disposition home or self-care (01) | DRG 807 ==
LOC: WSo 07:04 → LDRP 07:05 → WSo 07:55 → LDRP 07:55
PROVIDERS: ADMIT Family Medicine; ATTEND Family Medicine
PROC: 10E0XZZ Delivery of Products of Conception, External Approach (ICD-10-PCS; principal; 2020-05-10)
DX: O60.14X0 Preterm labor third trimester with preterm delivery third trimester, not applicable or unspecified (principal); O42.013 Preterm premature rupture of membranes, onset of labor within 24 hours of rupture, third trimester; Z37.0 Single live birth; Z3A.36 36 weeks gestation of pregnancy
CPT/HCPCS: 36415; 85007; 85025; 85027; 86850; 86900; 86901; 99212